=== PATIENT | male | born 1950 | race Two or more races ===

== ENCOUNTER 2018-03-27 20:23 | Inpatient (IN) | payer MEDICARE, OTHER ==
[~2018-03-27] VITALS: Ht 177.8 cm; Wt 69.4 kg
--- NOTE | 2018-03-27 20:23 | NUR ---
BB RA 889; ABD PAIN, NAUSEA, VOMIT X 1 DAY. A/OX2 ABLE TO MAKE NEEDS KNOWN BUT HARD OF HEARING. VSS NAD. WILL CONTINUE TO MONITOR FOR ANY CHANEGS DURING THE SHIFT.
--- NOTE | 2018-03-27 20:24 | NUR ---
ER MD DALY AT BEDSIDE FOR EVAL
[2018-03-27] MEDS ORDERED: ONDANSETRON HCL/PF 4 MG/2 ML VIAL ONE (20:59)
[2018-03-27] MEDS ORDERED: IV NS 0.9% 1,000 ML BAG IV ONE (21:00)
[2018-03-27] MEDS ORDERED: ONDANSETRON HCL/PF 4 MG/2 ML VIAL IVP ONE (21:00)
[2018-03-27 21:04] LABS: BASOPHILS # (AUTO) 0.1 /CMM (0.0-0.2); BASOPHILS % (AUTO) 0.7 % (0.0-2.0); EOSINOPHILS % (AUTO) 0.8 % (0.0-6.0); HEMATOCRIT 48 % (39-51); HEMOGLOBIN 16.9 g/dL (13.5-17.5); LYMPHOCYTES % (AUTO) 7.9 % (20.0-44.0); MEAN CORPUSCULAR HEMOGLOBIN 34 PG (26.0-33.0); MEAN CORPUSCULAR HGB CONC 35 g/dl (31.0-36.0); MEAN CORPUSCULAR VOLUME 96 fL (80-96); MONOCYTES # (AUTO) 0.6 /CMM (0.1-1.30); MONOCYTES % (AUTO) 4.9 % (2.0-12.0); NEUTROPHILS % (AUTO) 85.7 % (43.0-81.0); PLATELET COUNT (AUTO) 254 /CMM (150-450); RED BLOOD CELL COUNT(AUTO) 5.01 MIL/uL (4.5-6.0); WHITE BLOOD COUNT (AUTO) 12.8 K/uL (4.3-11.0)
[2018-03-27 21:08] LABS: CALCIUM, SERUM 9.5 mg/dL (8.5-10.1); CREATININE 1.4 mg/dL (0.6-1.3)
[2018-03-27 21:23] LABS: ALBUMIN 3.9 g/dL (3.4-5.0); BILIRUBIN,DIRECT 0.3 mg/dL (0.0-0.2); BILIRUBIN,TOTAL 1.2 mg/dL (0.2-1.0)
--- NOTE | 2018-03-27 21:25 | NUR ---
DR. ALANNA NAPOLES COMMERCIAL TELLER, TRANSFERRED CALL TO DR. DALY
[2018-03-27] MEDS ORDERED: PANTOPRAZOLE 80 MG in IV NS 0.9% 500 ML IV ONE (21:30)
[2018-03-27] MEDS ORDERED: PANTOPRAZOLE 40 MG VIAL ONE (21:34)
--- NOTE | 2018-03-27 22:08 | NUR ---
CALLED NURSING SUP. FOR TELE BED
--- NOTE | 2018-03-27 22:25 | NUR ---
TELE 118-1 FOR UPPER GI BLEED, HEMATEMESIS, ADMITTING
--- NOTE | 2018-03-27 23:00 | NUR ---
BARREL RAISER HELPER ADMITTING NOTES RECEIVED REPORT FROM SU GARCIA. PATIENT ADMITTED TO TELE UNIT TO ROOM 118-[address] MONDRAGON W/ DX UPPER GI BLEED. PATIENT A/A/O X1-2 W/ SOME CONFUSION NOTED. ABLE TO FOLLOW SIMPLE COMMANDS. BREATHING EVEN & UNLABORED, TOLERATING ROOM AIR. ON TELE W/ CONTROLLED A-FIB, HR 70S. DENIES ANY SOB OR CARDIAC DISTRESS. LEFT AC IV #18 INTACT & PATENT W/ DRESSING CDI & PROTONIX DRIP INFUSING WELL @ 52 ML/HR. NO S/S OF INFILTRATION NOTED. DENIES ANY PAIN OR DISCOMFORT @ THIS TIME BUT C/O NAUSEA. SKIN ASSESSMENT DONE W/ PICTURES TAKEN. PATIENT ORIENTED TO ROOM AND INSTRUCTED TO USE CALL LIGHT FOR ASSISTANCE. SAFETY MEASURES IN PLACE W/ BED ALARM ON. AWAITING ADMITTING ORDERS. WILL CONTINUE TO MONITOR.
[2018-03-27 23:01] VITALS: BP 147/87
[2018-03-28] VITALS: BP 147/87
[2018-03-28] MEDS ORDERED: ONDANSETRON HCL/PF 4 MG/2 ML VIAL IVP PRN (00:30)
[2018-03-28] MEDS ORDERED: ZOLPIDEM TARTRATE 5 MG TABLET PO PRN (00:30)
[2018-03-28] MEDS ORDERED: HYDROCODONE/APAP 5/325MG 1 EACH TABLET PO PRN (00:30)
[2018-03-28] MEDS ORDERED: MAGNESIUM HYDROXIDE 30 ML UDC PO PRN (00:30)
[2018-03-28] MEDS ORDERED: ACETAMINOPHEN 325 MG TABLET PO PRN (00:30)
[2018-03-28] MEDS ORDERED: Z GUARD REMEDY 2 OZ OINT TP PRN (00:30)
[2018-03-28] MEDS ORDERED: MAG HYDROX/AL HYDROX/SIMETH 30 ML UDC PO PRN (00:30)
[2018-03-28 04:00] VITALS: BP 156/72
--- NOTE | 2018-03-28 05:00 | NUR ---
PONY TRIMMER NOTES PATIENT NOTED W/ BEHAVIORAL OUTBURSTS OF AGGRESSIVENESS TOWARDS STAFF WHEN ASSISTING TO BATHROOM. PATIENT YELLING LOUDLY & CUSSING @ NURSES WHEN ATTEMPTED TO ASSIST.
--- NOTE | 2018-03-28 06:22 | NUR ---
SENIOR ACCOUNTANT NOTES PATIENT CONTINUES TO YELL & CUSS @ NURSES WHEN ATTEMPTING TO ASSIST TO BATHROOM. PATIENT IS REPEATEDLY GOING BACK AND FORTH TO BATHROOM EVEN WHEN HE IS NOT HAVING BM OR URINATING. EMESIS X2 NOTED & ZOFRAN GIVEN. SECURITY CALLED FOR ADDITIONAL SAFETY. PER PREVIOUS MEDICAL RECORDS, PT HAS HX OF SCHIZOPHRENIA BUT IS NOT TAKING ANY MEDS FOR IT. WILL ENDORSE TO AM NURSE TO TRY AND GET PSYCH EVAL FOR PT.
--- NOTE | 2018-03-28 07:30 | NUR ---
RN OPENING NOTES RECEIVED PATIENT ASLEEP COMFORTABLY IN BED, EASILY AROUSABLE DURING CARE. PATIENT REPORTED TO BE NON COMPLIANT WITH CARE. CORPORATE AUDITOR IN PLACE, CONTROLLED AFIB AT THIS TIME. RESPIRATIONS EVEN AND UNLABORED, RESPIRATIONS EVEN AND UNLABORED, NO N/V AT THIS TIME. DENIES ANY PAIN OR DISCOMFORT AT THIS TIME. IV ACCESS TO LAC PATENT AND INTACT NO REDNESS OR INFILTRATION NOTED. PT FOR ABD US TODAY, WILL CONTINUE TO MONITOR
[2018-03-28 08:00] VITALS: BP 106/70
--- NOTE | 2018-03-28 08:50 | NUR ---
RN NOTES/REFUSING ABD US US TECH IN ROOM FOR US OF ABDOMEN, PT YELLS OUT " LEAVE EVERYTHING IT IS, THAT IS HOW I WANT IT, I AM FINE, NOTHING IS WRONG IF IT WAS I WOULD TELL YOU" PT REFUSING TO HAVE ABD US DONE, WILL NOTIFY AND REATTEMPT
[2018-03-28] MEDS: PANTOPRAZOLE 40 MG VIAL IV SCH ×2 (08:51→16:20)
[2018-03-28 12:00] VITALS: BP 106/70
--- NOTE | 2018-03-28 15:40 | NUR ---
RN NOTES PROVIDER RELATIONS REPRESENTATIVE FAUSTO AWARE PT REFUSING ABD US, PT TO HAVE PSYCH AND GI CONSULTS, WILL CONTINUE TO MONITOR
--- NOTE | 2018-03-28 15:51 | NUR ---
RN NOTES/PSYCH CONSULT PT SEEN BY DR. KNIGHT, PT WITH EPISODES OF YELLING OUT, SCREAMING AT STAFF AND ANGER OUTBURST, PER DR. KNIGHT TO BE SEEN BY CRISIS TEAM, CRISIS TEAM AWARE WILL CONTINUE TO MONITOR
--- NOTE | 2018-03-28 15:52 | NUR ---
RN NOTES/ REFUSING LABS PT WITH REFUSAL OF LAB WORK CONTINUES TO YELL AT STAFF "LEAVE ALONE THEY DONT NEED BLOOD" WILL CONTINUE TO MONITOR SEWER LINE REPAIRER TO REATTEMPT
[2018-03-28 16:00] VITALS: BP 105/59
[2018-03-28] MEDS: IV NS 0.9% 1,000 ML IV PRN ×2 (16:21→18:45)
--- NOTE | 2018-03-28 16:38 | NUR ---
RN NOTES/PSYCH CONSULT PER DR. KNIGHT PLACED ON MEDICATIONS, CALL CRISIS TEAM IF PT TRYING TO HARM SELF OR TRYING TO LEAVE HOSPITAL, WILL CONTINUE TO MONITOR AND CARRY OUT ORDERS
[2018-03-28 16:56] LABS: CALCIUM, SERUM 8.4 mg/dL (8.5-10.1); CREATININE 1.2 mg/dL (0.6-1.3); POTASSIUM 4.5 mmol/L (3.5-5.1)
--- NOTE | 2018-03-28 17:42 | NUR ---
RN NOTES PATIENT CONTINUES WITH VERBAL ANGER OUTBURST, YELLS AT STAFF STATING "I WILL HURT SOMEONE IF THAT NOISE KEEPS GOING OFF" REFERRING TO AC VENT AND MEDICAL EQUIPMENT IN OTHER PT ROOMS
--- NOTE | 2018-03-28 17:44 | NUR ---
RN NOTES PT REFUSING NURSING CARE, REFUSES BED BATH AND TO BE REPOSITIONED WILL CONTINUE TO MONITOR
[2018-03-28] MEDS: HALOPERIDOL 5 MG TABLET PO SCH (17:54)
[2018-03-28] MEDS: BENZTROPINE MESYLATE (1 MG) 1 MG TABLET PO SCH (17:54)
--- NOTE | 2018-03-28 19:01 | NUR ---
RN CLOSING NOTES RECEIVED ASLEEP COMFORTABLY IN BED, EASILY AROUSABLE DURING CARE. PATIENT NON COMPLIANT WITH CARE. RESPIRATIONS EVEN AND UNLABORED, NO N/V AT THIS THROUGHOUT SHIFT. DENIES ANY PAIN OR DISCOMFORT AT THIS TIME. IV ACCESS TO LAC PATENT AND INTACT NO REDNESS OR INFILTRATION NOTED. PT REFUSED ABD US TODAY,CASE RESOURCE MANAGER AND GI MD AWARE WILL CONTINUE TO MONITOR AND ENDORSE TO NEXT SHIFT FOR CONTINUITY OF CARE, PENDING CRISIS TEAM EVAL
--- NOTE | 2018-03-28 19:45 | NUR ---
MS RN INITIAL NOTE PT AWAKE AND ALERT. ON ROOM AIR AND SATURATING WELL. NOTED TO BE UNCOOPERATIVE, NON-COMPLIANT AND COMBATIVE. REFUSING VITAL SIGNS AND BLOOD TESTS. EXPLAINED RISKS AND BENEFITS AND PATIENT STILL REFUSING. NO C/O PAIN OR DISCOMFORT NOTED. NO NAUSEA OR VOMITING NOTED. CALL LIGHT WITHIN REACH. BED ALARM ENABLED. AWAITING CRISIS TEAM EVAL. WILL CONTINUE TO MONITOR.
--- NOTE | 2018-03-28 23:30 | NUR ---
MS RN NOTE SPOKE WITH ART FROM CRISIS TEAM REGARDING PT EVAL. ART SAID NO EVALUATION AT THIS TIME BECAUSE HE IS NOT MEDICALLY CLEARED. WILL F/U TOMORROW WITH PRIMARY AND PSYCH. PT STILL REFUSING CARE AND WANTS TO BE LEFT ALONE. WILL MONITOR.
[2018-03-29] MEDS: IV NS 0.9% 1,000 ML IV PRN (07:21)
[2018-03-29 07:28] LABS: BASOPHILS % (AUTO) 0.2 % (0.0-2.0); EOSINOPHILS % (AUTO) 0.8 % (0.0-6.0); HEMATOCRIT 42 % (39-51); HEMOGLOBIN 14.1 g/dL (13.5-17.5); LYMPHOCYTES # (AUTO) 1.4 /CMM (0.8-4.8); LYMPHOCYTES % (AUTO) 16.1 % (20.0-44.0); MEAN CORPUSCULAR HEMOGLOBIN 34 PG (26.0-33.0); MEAN CORPUSCULAR HGB CONC 34 g/dl (31.0-36.0); MEAN CORPUSCULAR VOLUME 100 fL (80-96); MONOCYTES # (AUTO) 0.6 /CMM (0.1-1.30); MONOCYTES % (AUTO) 6.5 % (2.0-12.0); NEUTROPHILS # (AUTO) 6.9 /CMM (1.8-8.9); NEUTROPHILS % (AUTO) 76.4 % (43.0-81.0); PLATELET COUNT (AUTO) 224 /CMM (150-450); RDW COEFFICIENT OF VARIATION 12.7 (11.5-15.0); RED BLOOD CELL COUNT(AUTO) 4.18 MIL/uL (4.5-6.0)
--- NOTE | 2018-03-29 07:30 | NUR ---
M/S RN - Assessment Patient in bed awake, A/O x 1-2, denies pain, not in any form of distress, tolerating room air, combative, verbally abusive, refusing blood draw today. Patient was admitted for UGIB, refused endoscopy, no active bleeding noted at this time, currently on clear liquids, no n/v, no c/o abdominal pain. IVF NS @ 75 ml/hr infusing well on the LAC with no signs of infiltration. Skin assessment done and documented, independent with bed mobility. All needs attended and met. Fall precautions maintained. Will continue with current medical management.
[2018-03-29 07:46] LABS: ALBUMIN 2.8 g/dL (3.4-5.0); BILIRUBIN,TOTAL 1.1 mg/dL (0.2-1.0); CALCIUM, SERUM 8.3 mg/dL (8.5-10.1); CREATININE 1.1 mg/dL (0.6-1.3); MAGNESIUM 1.9 mg/dL (1.8-2.4); PHOSPHORUS 2.1 mg/dL (2.5-4.9)
[2018-03-29] MEDS: BENZTROPINE MESYLATE (1 MG) 1 MG TABLET PO SCH ×3 (08:26→16:33)
[2018-03-29] MEDS: HALOPERIDOL 5 MG TABLET PO SCH ×3 (08:26→16:33)
[2018-03-29 08:30] VITALS: BP 122/66
[2018-03-29] MEDS ORDERED: PANTOPRAZOLE 40 MG VIAL IV SCH (09:00)
--- NOTE | 2018-03-29 09:00 | NUR ---
M/S RN - Notes Patient calm, agreed to blood draw earlier, compliant with meds, tolerated clear liquids for breakfast. Labs reviewed, noted phosphorus was 2.1, will notify ANDRA Metz. Will continue to monitor closely.
[2018-03-29] MEDS ORDERED: PANT40TA2 PO (10:38)
[2018-03-29] MEDS ORDERED: HALO5TAB8 PO (10:39)
[2018-03-29] MEDS ORDERED: BENZ1TAB7 PO (10:39)
--- NOTE | 2018-03-29 13:00 | NUR ---
M/S RN - Notes Patient tolerated regular diet well, denies n/v, no c/o abdominal pain. Per ANDRA Metz medically stable for discharge back to board and care today. CM made aware.
[2018-03-29] MEDS ORDERED: K PHOS NEUTRAL 250 MG TABLET PO ONE (13:30)
[2018-03-29 16:00] VITALS: BP 128/71
--- NOTE | 2018-03-29 18:15 | NUR ---
M/S RN - Discharge Patient discharged back to [facility] care ([facility]) in stable condition, Edy district court administrator aware [phone]. Reviewed discharge instructions with Edy and he verbalized full understanding of all teachings, also made aware that patient has an appt with [facility] on 03/31/18 at 12:00 pm, seek immediate medical attention for worsening symptoms, chest pain, shortness or breath, any bleeding, weakness, fatigue, dizziness, or any other emergent medical concern. Patient with no belongings on file. VSS, denies abdominal pain, no c/o n/v, no active bleeding, tolerating regular diet, not in any form of distress. Saline lock removed on the LAC with catheter tip intact, no redness, no swelling seen at the site. Patient refused photos to be taken, no open wounds seen. Discharge papers given to ambulance crew and endorsed accordingly.
== END 2018-03-29 18:29 | disposition home or self-care (01) | DRG 368 ==
LOC: ER 20:25 → TELE1 22:44 → MEDSG1 03-28 14:50
PROVIDERS: ADMIT Internal Medicine; ATTEND Internal Medicine
DX: K22.6 Gastro-esophageal laceration-hemorrhage syndrome (principal); N17.0 Acute kidney failure with tubular necrosis; F20.0 Paranoid schizophrenia; K29.71 Gastritis, unspecified, with bleeding; I10 Essential (primary) hypertension; D72.829 Elevated white blood cell count, unspecified; E80.6 Other disorders of bilirubin metabolism; Z59.0 Homelessness; F10.10 Alcohol abuse, uncomplicated; F41.9 Anxiety disorder, unspecified; F17.210 Nicotine dependence, cigarettes, uncomplicated
CPT/HCPCS: 36415; 76705-TC; 80048-TC; 80053-TC; 80061-TC; 80076-TC; 83690-TC; 83735-TC; 84100-TC; 84484-TC; 85025-TC; 86850-TC; 87081-TC; A4606; C9113; J2405; J7030; Z7610

== ENCOUNTER 2018-12-10 00:03 | Emergency (ER) | payer MEDICARE, OTHER ==
[~2018-12-10] VITALS: Ht 180.3 cm; Wt 70.3 kg
[~2018-12-10 00:03] MED LIST: BENZ1TAB7 PO; HALO5TAB8 PO; PANT40TA2 PO
--- NOTE | 2018-12-10 00:29 | NUR ---
[id number] FROM [facility] C/O R KNEE REDNESS/SWELLING X 1 DAY. AOX2 BASELINE. KNEE IS WARM TO TOUCH, INTACT. PT ABLE TO ANSWER QUESTIONS. DENIES PAIN, NO ACUTE DISTRESS NOTED. READY FOR EVAL.
--- NOTE | 2018-12-10 00:44 | NUR ---
SEEN BY DR CORBIN
[2018-12-10] MEDS ORDERED: CLINDAMYCIN HCL 150 MG CAPSULE PO ONE ×2 (00:48→01:00)
--- NOTE | 2018-12-10 02:27 | NUR ---
Patient is resting comfortably in bed with eyes closed. Easily aroused. VSS
--- NOTE | 2018-12-10 02:42 | NUR ---
LYNDA TAYLOR GOING TO [facility] ETA [id number] TRIP #[id number]
--- NOTE | 2018-12-10 03:18 | NUR ---
DC INSTRUCTIONS GIVEN TO EMT FOR RELAY TO FACILITY.
--- NOTE | 2018-12-10 03:25 | NUR ---
REPORT GIVEN TO DAFNE NOYOLA AND KAMARI AT [facility]
[2018-12-10 03:31] VITALS: BP 117/76
[2018-12-16] MEDS ORDERED: Digoxin PO (11:50)
[2018-12-16] MEDS ORDERED: MUPI22OI7 (11:51)
[2018-12-16] MEDS ORDERED: LACT1CAP72 PO (11:51)
[2018-12-16] MEDS ORDERED: NITR100C15 PO (11:51)
[2018-12-16] MEDS ORDERED: DILT30TA14 PO (11:51)
[2018-12-16] MEDS ORDERED: VANC750P7 IV (11:51)
== END 2018-12-10 03:32 ==
LOC: ER 00:08
DX: L03.115 Cellulitis of right lower limb (principal); G20 Parkinson's disease; N40.0 Benign prostatic hyperplasia without lower urinary tract symptoms; F20.9 Schizophrenia, unspecified; I48.91 Unspecified atrial fibrillation; I10 Essential (primary) hypertension; R53.1 Weakness; F10.10 Alcohol abuse, uncomplicated; F17.200 Nicotine dependence, unspecified, uncomplicated; Y90.9 Presence of alcohol in blood, level not specified
CPT/HCPCS: 73560-TC

== ENCOUNTER 2018-12-11 22:39 | Inpatient (IN) | payer MEDICARE, OTHER ==
[~2018-12-11] VITALS: Ht 172.7 cm; Wt 54.4 kg
[2018-12-11] MEDS: DILTIAZEM HCL 50 MG IV IV ONE (00:05)
[2018-12-11] MEDS: LEVOFLOXACIN 750 MG /D5W 150ML 150 ML IV ONE (00:05)
--- NOTE | 2018-12-11 23:05 | NUR ---
PT MARYANA FROM [facility] FOR UTI/SEPSIS. PT RESPIRATIONS EVEN AND UNLABORED. PT PUT ON THE TURKEY FARMER AND PULSE OX. PT TACHYCARDIC ON THE MONITOR IN THE 140S, WARM TO THE TOUCH, RECTAL TEMP. 102.2. PENDING EVAL FROM DIANA FRAUSTO.
[2018-12-11] MEDS ORDERED: ACETAMINOPHEN 650 MG/SUPP.RECT RC ONE ×2 (23:30→23:38)
[2018-12-11] MEDS ORDERED: VANCOMYCIN 1 GM in IV D5W 250 ML IV ONE (23:30)
[2018-12-11] MEDS ORDERED: IV NS 0.9% 1,000 ML BAG IV ONE (23:30)
[2018-12-11] MEDS ORDERED: Calcium Gluconate 0.465 MEQ/ML VIAL IV ONE (23:35)
[2018-12-11] MEDS ORDERED: DILTIAZEM HCL 25 MG IV ONE (23:37)
[2018-12-11] MEDS ORDERED: LEVOFLOXACIN 750 MG /D5W 150ML 150 ML IV ONE (23:38)
[2018-12-11 23:47] LABS: BASOPHILS % (AUTO) 0.4 % (0.0-2.0); EOSINOPHILS % (AUTO) 0.6 % (0.0-6.0); HEMATOCRIT 39 % (39-51); HEMOGLOBIN 13.1 g/dL (13.5-17.5); LYMPHOCYTES # (AUTO) 0.8 /CMM (0.8-4.8); LYMPHOCYTES % (AUTO) 6.6 % (20.0-44.0); MEAN CORPUSCULAR HGB CONC 34 g/dl (31.0-36.0); MEAN CORPUSCULAR VOLUME 97 fL (80-96); MONOCYTES # (AUTO) 1.2 /CMM (0.1-1.30); MONOCYTES % (AUTO) 10.6 % (2.0-12.0); NEUTROPHILS # (AUTO) 9.6 /CMM (1.8-8.9); NEUTROPHILS % (AUTO) 81.8 % (43.0-81.0); PLATELET COUNT (AUTO) 298 /CMM (150-450); RED BLOOD CELL COUNT(AUTO) 4.03 MIL/uL (4.5-6.0); WHITE BLOOD COUNT (AUTO) 11.7 K/uL (4.3-11.0)
[2018-12-11 23:57] LABS: APPEARANCE,URINE Slightly Cloudy (CLEAR); BILIRUBIN,URINE Negative (NEGATIVE); BLOOD, URINE Moderate Ery/uL (NEGATIVE); COLOR,URINE Yellow (YELLOW); KETONES,URINE Negative (NEGATIVE); LEUKOCYTE ESTERASE ,URINE Small (NEGATIVE); NITRITE, URINE Negative (NEGATIVE); PH,URINE 5.5 (5.0-8.0); PROTEIN,URINE 100 mg/dl (NEGATIVE); UGLUCOSE Negative (NEGATIVE); UROBILINOGEN,URINE 0.2 EU/dL (0.2)
[2018-12-11 23:59] LABS: CALCIUM, SERUM 8.3 mg/dL (8.5-10.1); CREATININE 0.9 mg/dL (0.6-1.3); POTASSIUM 3.6 mmol/L (3.5-5.1)
[2018-12-12] MEDS ORDERED: Calcium Gluconate 1GM/10ML 4.65 MEQ in IV NS 0.9% 50 ML IV ONE ×2
[2018-12-12] MEDS: LEVOFLOXACIN 750 MG /D5W 150ML 150 ML IV ONE (00:05)
[2018-12-12] MEDS: DILTIAZEM HCL 50 MG IV IV ONE (00:05)
--- NOTE | 2018-12-12 00:10 | NUR ---
XRAY AT BEDSIDE.
[2018-12-12 00:11] LABS: ALBUMIN 2.2 g/dL (3.4-5.0); BILIRUBIN,DIRECT 0.2 mg/dL (0.0-0.2); BILIRUBIN,TOTAL 0.6 mg/dL (0.2-1.0); TOTAL PROTEIN, SERUM 6.2 g/dL (6.4-8.2)
[2018-12-12 00:30] LABS: RBC,URINE 51-80 /HPF (0-2); WBC,URINE TOO NUMEROUS TO COUN /HPF (0-3)
[2018-12-12 00:31] LABS: BACTERIA,URINE Many /HPF (None Seen); MUCUS,URINE Moderate /LPF (None Seen)
--- NOTE | 2018-12-12 00:42 | NUR ---
HINA PAGED FOR THE SECOND TIME
[2018-12-12] MEDS ORDERED: VANCOMYCIN 1 GM VIAL ONE (00:49)
--- NOTE | 2018-12-12 00:55 | NUR ---
PT TACHYCARDIC ON THE MONITOR IN THE 130S, ER AWARE. WILL CARRY OUT ORDERS.
--- NOTE | 2018-12-12 01:01 | NUR ---
REPORT GIVEN TO ALLY GARCIA FOR HELENA.
[2018-12-12] MEDS ORDERED: DILTIAZEM HCL 25 MG IV ONE (01:06)
[2018-12-12] MEDS ORDERED: DILTIAZEM HCL 50 MG IV IV ONE ×2 (01:30→02:00)
--- NOTE | 2018-12-12 01:55 | NUR ---
PT TACHYCARDIC ON THE MONITOR, ER AWARE. WILL CARRY OUT ORDERS.
[2018-12-12 02:17] VITALS: BP 106/67
--- NOTE | 2018-12-12 02:17 | NUR ---
RN YURIY NOTE RECEIVED PT FROM ER, SPEECH CLEAR, AOX1-2, ABLE TO FOLLOW COMMANDS, DENIES PAIN, ON TELE AFIB, ON ROOM AIR DENIES ANY CARDIAC OR RESPIRATORY DISTRESS, F/C DRAINING TO GRAVITY YELLOW URINE WITH SEDIMENT, SKIN KEPT CLEAN AND DRY, HEELS OFFLOADED, INSTRUCTED WRAPAROUND FACILITATOR LIGHT USE, SAFETY MAINTAINED AT ALL TIMES, BED IN LOW, LOCKED POSITION POSITION, WILL CONTINUE TO MONITOR FOR ANY CHANGES.
[2018-12-12] MEDS ORDERED: ACETAMINOPHEN 325 MG TABLET PO PRN (02:30)
[2018-12-12] MEDS ORDERED: MAGNESIUM HYDROXIDE 30 ML UDC PO PRN (02:30)
[2018-12-12] MEDS ORDERED: HYDROCODONE/APAP 5/325MG 1 EACH TABLET PO PRN (02:30)
[2018-12-12] MEDS ORDERED: MAG HYDROX/AL HYDROX/SIMETH 30 ML UDC PO PRN (02:30)
[2018-12-12] MEDS ORDERED: Z GUARD REMEDY 2 OZ OINT TP PRN (02:30)
[2018-12-12] MEDS ORDERED: METOPROLOL TARTRATE INJ 5 MG/5 ML AMPUL IVP PRN (02:30)
[2018-12-12] MEDS ORDERED: ONDANSETRON HCL/PF 4 MG/2 ML VIAL IVP PRN (02:30)
--- NOTE | 2018-12-12 02:49 | NUR ---
RN YURIY NOTE PATIENT HAS ORDER FOR ZOSYN, HAS ALLERGY TO PENICILLIN, MESSAGE TO DR SANTAMARIA CONCERNING ORDER STATES TO D/C
[2018-12-12] MEDS ORDERED: LEVOFLOXACIN 750 MG /D5W 150ML 150 ML IV ONE (03:42)
[2018-12-12] MEDS: LEVOFLOXACIN 750 MG /D5W 150ML 750 MG in PREMIX 1 EA IV SCH ×2 (03:45→21:16)
[2018-12-12 04:00] VITALS: BP 99/61
[2018-12-12] MEDS ORDERED: VANCOMYCIN 1.25 GM in IV D5W 500 ML IV SCH (05:00)
--- NOTE | 2018-12-12 05:53 | NUR ---
RN YURIY NOTE MESSAGE TO DR SANTAMARIA CONCERNING NPO ORDER AND PT ON PO CARDIZEM, AWAITING MD RESPONSE IF MEDICATION SHOULD BE GIVEN.
[2018-12-12] MEDS: DILTIAZEM HCL 30 MG TABLET PO SCH ×4 (06:00→23:56)
[2018-12-12] MEDS ORDERED: PIPERACILLIN /TAZOBACTAM 4.5 G in IV D5W 50 ML IV SCH (06:00)
--- NOTE | 2018-12-12 06:36 | NUR ---
RN YURIY NOTE CALL TO EXCHANGE FOR DR SANTAMARIA FOR ORDERS ON NPO STATUS AND NEED FOR PO MED ADMINISTRATION, AWAITING CALL BACK.
[2018-12-12 07:01] LABS: CALCIUM, SERUM 8.3 mg/dL (8.5-10.1); CREATININE 0.9 mg/dL (0.6-1.3); MAGNESIUM 1.3 mg/dL (1.8-2.4); POTASSIUM 3.8 mmol/L (3.5-5.1)
--- NOTE | 2018-12-12 07:11 | NUR ---
RN YURIY NOTE NO CALL BACK FROM ONCANEL FRAUSTO WILL ENDORSE TO RN CONCERNING NPO ORDER AND NEED FOR PO MED ADMINISTRATION, CARDIZEM HELD DUE TO NPO STATUS, PT CONTINUES TO BE ON TELE AFIB, NO S/SX OF CARDIAC DISTRESS NOTED.
[2018-12-12] MEDS ORDERED: ALBUTEROL FS 2.5 MG/3 ML VIAL.NEB NEB PRN (07:35)
--- NOTE | 2018-12-12 07:40 | NUR ---
RN NOTE: RECEIVED PATIENT IN BED, AWAKE, ALOOF AND VERBALLY RESPONSIVE. RESPIRATION EVEN AND UNLABORED SATURATING 98% IN ROOM AIR. DENIED ANY PAIN OR DISCOMFORT. ON SAMPLE MOUNTER A. FIB HR= 103. (R) FOREARM AND (L) WRIST IV SITE REMAINED PATENT AND INTACT. AFEBRILE. SKIN WARM TO TOUCH. NPO STATUS AT THIS TIME AND WILL CLARIFY WITH THE HOSPITALIST REGARDING DIET STATUS. BED ALARMED AND LOCKED AT ALL TIMES. CALL LIGHT WITHIN REACH. NEEDS ANTICIPATED. ON CONTACT ISOLATION FOR MRSA BLOOD AND URINE FROM THE LONG TERM ([employer] [facility]).
[2018-12-12 08:00] VITALS: BP 101/65
[2018-12-12] MEDS ORDERED: FEE PK DOSING 1 MIN EA MC ONE (08:10)
[2018-12-12 08:29] LABS: THYROID STIMULATING HORMONE 0.79 uIU/mL (0.358-3.74)
--- NOTE | 2018-12-12 09:36 | NUR ---
RN NOTE: CLARIFIED WITH JOE LEONARD DNP RE: THE PATIENT'S NPO STATUS. PATIENT WAS RECEIVED WITH UNCONTROLLED A. FIB HEART RATE NOW WAS 110. PER JOE LEONARD DNP PATIENT CAN BE NPO EXCEPT MEDS IN ORDER TO ADMINISTER HIS MEDICATIONS AND A CARDIOLOGY CONSULT WAS ALSO ORDERED. PATIENT MADE AWARE.
[2018-12-12] MEDS: BENZTROPINE MESYLATE (1 MG) 1 MG TABLET PO SCH ×3 (09:55→16:56)
[2018-12-12] MEDS: HALOPERIDOL 5 MG TABLET PO SCH ×3 (09:55→16:56)
[2018-12-12] MEDS: PANTOPRAZOLE 40 MG TABLET.DR PO SCH ×2 (09:56→16:56)
[2018-12-12] MEDS: Magnesium 1GM/D5W 100ML PREMIX 100 ML IV SCH ×4 (09:56→14:11)
[2018-12-12] MEDS ORDERED: Magnesium 1GM/D5W 100ML PREMIX 100 ML IV SCH ×2 (10:00→10:41)
--- NOTE | 2018-12-12 10:35 | NUR ---
WOUND CARE CONSULT: PT PRESENTS WITH SACRAL ULCER EXTENDING TO BUTTOCKS AND ALSO FOOT WOUNDS, PRESENT ON ADMISSION. CONSULTS IN PLACE FOR SURGICAL AND PODIATRY TEAM. PT INCONTINENT OF STOOL. YESENIA NOTED. RECOMMEND LOW AIRLOSS BED. WILL SEE PRN. ALL SKIN PROTECTION RECOMMENDATIONS DISCUSSED WITH NURSING STAFF. DEFER TO PLASTIC SURGERY/PODIATRY TEAM FOR WOUND TREATMENT PLAN. WILL SEE PRN. Addendum: 12/12/18 at 1039 by NURYS GABRIEL WNDNU ISOFLEX LOW AIRLOSS BED TO BE PLACED.
[2018-12-12] MEDS: DIGOXIN INJ 0.5 MG/2 ML AMPUL IV SCH ×3 (11:54→23:51)
[2018-12-12 12:00] VITALS: BP 110/70
--- NOTE | 2018-12-12 12:30 | NUR ---
RN NOTE: SPOKE WITH THE PATIENT AND MADE HIM AWARE THAT HE WILL BE TRANSFERRED TO A DIFFERENT TYPE OF MATTRESS. PATIENT STRONGLY REFUSED TO BE TOUCH. OFFERED 3X, EXPLAINED THE IMPORTANCE OF THE ISOFLEX MATTRESS, BUT PATIENT STRONGLY REFUSED TO BE TRANSFER.
[2018-12-12] MEDS: VANCOMYCIN 0.75 GM in IV D5W 250 ML IV SCH (14:12)
[2018-12-12 16:00] VITALS: BP 120/82
--- NOTE | 2018-12-12 19:06 | NUR ---
RN NOTE: PATIENT REMAINED ON A. FIB 110-116 HEART RATE. PATIENT DENIED ANY PAIN OR DISCOMFORT. NOT EXPERIENCING ANY CHEST PAIN. DIGOXIN WAS ADMINISTERED ORDER. BEDSIDE REPORT GIVEN TO PM SHIFT NURSE FOR CONTINUITY OF CARE.
--- NOTE | 2018-12-12 19:30 | NUR ---
RN NOTE, RECEIVED PATIENT IN BED, AWAKE, A/O TO SELF, AND VERBALLY RESPONSIVE, BREATHING EVEN AND UNLABORED NO SOB/ACUTE DISTRESS NOTED, FIB HR= 120S AT THIS TIME, RFA AND LEFT WRIST IV SITE PATENT AND INTACT, NPO STATUS AT THIS TIME, BED ALARMED AND LOCKED AT ALL TIMES, CALL LIGHT WITHIN REACH, ON CONTACT ISOLATION FOR MRSA BLOOD AND URINE, ALL NEEDS PROVIDED, WILL CONTINUE TO MONITOR CLOSELY.
[2018-12-12 20:00] VITALS: BP 103/64
[2018-12-13] VITALS: BP 125/68
[2018-12-13] MEDS: VANCOMYCIN 0.75 GM in IV D5W 250 ML IV SCH ×2 (00:55→13:09)
[2018-12-13 04:00] VITALS: BP 94/55
[2018-12-13] MEDS: DILTIAZEM HCL 30 MG TABLET PO SCH ×3 (06:44→17:31)
--- NOTE | 2018-12-13 07:00 | NUR ---
RN NOT, PATIENT IN BED SLEEPING AT THIS TIME, REMAINED ON AFIB 80-100S HEART RATE AT THIS TIME, NO DISTRESS NOTED, LAST DOSE OF DIGOXIN WAS ADMINISTERED ORDER AT MIDNIGHT, NO SIGNIFICANT CHANGE IN CONDITION DURING THE NIGHT, WILL ENDORSE CONTINUITY OF CARE TO ONCOMING NURSE.
[2018-12-13 07:06] LABS: BASOPHILS # (AUTO) 0.1 /CMM (0.0-0.2); BASOPHILS % (AUTO) 0.6 % (0.0-2.0); EOSINOPHILS % (AUTO) 0.6 % (0.0-6.0); HEMATOCRIT 40 % (39-51); HEMOGLOBIN 13.3 g/dL (13.5-17.5); LYMPHOCYTES % (AUTO) 11.6 % (20.0-44.0); MEAN CORPUSCULAR HGB CONC 34 g/dl (31.0-36.0); MEAN CORPUSCULAR VOLUME 96 fL (80-96); MONOCYTES # (AUTO) 0.8 /CMM (0.1-1.30); MONOCYTES % (AUTO) 9.7 % (2.0-12.0); NEUTROPHILS # (AUTO) 6.6 /CMM (1.8-8.9); NEUTROPHILS % (AUTO) 77.5 % (43.0-81.0); PLATELET COUNT (AUTO) 298 /CMM (150-450); WHITE BLOOD COUNT (AUTO) 8.5 K/uL (4.3-11.0)
[2018-12-13 07:14] LABS: CALCIUM, SERUM 8.3 mg/dL (8.5-10.1); CREATININE 1.1 mg/dL (0.6-1.3); MAGNESIUM 1.8 mg/dL (1.8-2.4); PHOSPHORUS 3.4 mg/dL (2.5-4.9); POTASSIUM 3.7 mmol/L (3.5-5.1)
--- NOTE | 2018-12-13 07:30 | NUR ---
LAMP ASSEMBLER OPENING NOTE RECEIVED PATIENT IN BED, AWAKE, AX0X1 TO , AND VERBALLY RESPONSIVE, BREATHING EVEN AND UNLABORED NO SOB/ACUTE DISTRESS NOTED, AFIB HR 70"S AT THIS TIME, RFA AND LEFT WRIST IV SITE PATENT AND INTACT, NPO., BED ALARM ON.BED IS LOW AND IN LOCKED POSITION. CALL LIGHT WITHIN REACH.SRX3. ON CONTACT ISOLATION FOR MRSA BLOOD AND URINE. WILL CONTINUE TO MONITOR .
[2018-12-13 08:00] VITALS: BP_SYST 93; BP_SYST 97; BP_DIAS 55
--- NOTE | 2018-12-13 08:25 | NUR ---
MANAGER BALANCE NOTE NPO STATUS. NOTIFIED.WAITING FOR NEW ORDERS.
[2018-12-13] MEDS: BENZTROPINE MESYLATE (1 MG) 1 MG TABLET PO SCH ×3 (09:37→17:31)
[2018-12-13] MEDS: HALOPERIDOL 5 MG TABLET PO SCH ×3 (09:37→17:31)
[2018-12-13] MEDS: PANTOPRAZOLE 40 MG TABLET.DR PO SCH ×2 (09:37→17:31)
--- NOTE | 2018-12-13 10:30 | NUR ---
MS RN NOTE OK TO START ON PO DIET PER .PUREE DIET ORDERED.BED SIDE SWALLOW DONE.PATIENT PASSED SWALLOW EVAL.NOTED THAT PATIENT TAKES TIME TO SWALLOW.ORDERED SWALLOW EVAL BY SPEECH THERAPIST.SWALLOW EVAL DONE BY DRU.GOT NEW ORDER TO CONTINUE SAME DIET WITH ASPIRATION PRECAUTIONS.WILL CONTINUE TO MONITOR.
--- NOTE | 2018-12-13 11:08 | NUR ---
MS RN NOTE SEEN BY ANDRA DIAZ.UPDATED ABOUT PATIENT CONDITION AND LABS.MADE AWARE THAT F/C REMOVED FOR REPLACEMENT PER JER FRAUSTO.BUT UNABLE TO REINSERT.
[2018-12-13] MEDS: DIGOXIN 0.25 MG TABLET PO SCH (13:06)
[2018-12-13 16:00] VITALS: BP 102/60
--- NOTE | 2018-12-13 18:44 | NUR ---
MS RN CLOSING NOTE PATIENT IN BED, AWAKE, AX0X1 TO , AND VERBALLY RESPONSIVE, BREATHING EVEN AND UNLABORED NO SOB/ACUTE DISTRESS NOTED, RFA AND LEFT WRIST IV SITE PATENT AND INTACT, . BED ALARM ON.BED IS LOW AND IN LOCKED POSITION. CALL LIGHT WITHIN REACH.SRX3. ON CONTACT ISOLATION FOR MRSA NARES,BLOOD AND URINE. BLADDERSCAN DONE.SHOWS >200 ML.PATIENT WAS UNABLE TO PASS URINE.REINSERTED PATTERSON CATH 14X10.PATIENT REFUSED TO TURN AND REPOSITION EVERY 2 HRS.AGREED SOME TIMES.HAS BEHAVIOR OF HITTING AND VERBALLY ABUSIVE.PLACED NEW MED ORDER FOR MRSA NARES.NOTIFIED BY JESÚS FROM [employer].WILL ENDORSE TO PM NURSE FOR HELENA AND TO FOLLOW UP WITH DIETARY RECOMMENDATIONS.
--- NOTE | 2018-12-13 19:30 | NUR ---
MS RN NOTES RECEIVED ON BED ON SEMI FOWLERS POSITION,BREATHING NON LABORED,ISOLATION PRECAUTION FOR MRSA NARES,BLOOD AND URINE.WITH PATTERSON CATH IN PLACE DRAINING TEA COLORED URINE.NOTED REDNESS ON BILATERAL HEELS,MEPILEX IN PLACE.SALINE LOC LEFT WRIST INTACT AND PATENT.CALL LIGHT IN REACH,NEEDS ANTICIPATED.
[2018-12-13 20:01] VITALS: BP 91/45
[2018-12-13] MEDS: LEVOFLOXACIN 750 MG /D5W 150ML 750 MG in PREMIX 1 EA IV SCH (21:08)
[2018-12-13] MEDS: MUPIROCIN OINT 2% 22 GM TUBE SCH (21:11)
[2018-12-14] VITALS: BP 103/49
[2018-12-14] MEDS: VANCOMYCIN 0.75 GM in IV D5W 250 ML IV SCH ×2 (00:25→13:17)
[2018-12-14 04:05] VITALS: BP 92/54
[2018-12-14] MEDS: DILTIAZEM HCL 30 MG TABLET PO SCH ×4 (06:00→18:06)
--- NOTE | 2018-12-14 06:13 | NUR ---
MS RN NOTES NO SIGNIFICANT CHANGE IN STATUS,CALM AND QUIET AT NIGHT.IV ABV TOLERATED WELL,IN NO ACUTE DISTRESS.WILL CONTINUE TO MONITOR STATUS AND MANAGE ACCORDINGLY.MORNING CARE RENDERED TOLERATED WELL.WILL ENDORSE TO DAY NURSE FOR HELENA.
--- NOTE | 2018-12-14 07:05 | NUR ---
MS RN OPENING NOTE RECEIVED REPORT FROM PM NURSE.PATIENT IN BED, AWAKE, AX0X1 AND VERBALLY RESPONSIVE, BREATHING EVEN AND UNLABORED NO SOB/ACUTE DISTRESS NOTED, RFA AND LEFT WRIST IV SITE PATENT AND INTACT, . BED ALARM ON.BED IS LOW AND IN LOCKED POSITION. CALL LIGHT WITHIN REACH.SRX3. ON CONTACT ISOLATION FOR MRSA NARES,BLOOD AND URINE. WILL CONTINUE TO MONITOR.
[2018-12-14 07:29] LABS: BASOPHILS # (AUTO) 0.1 /CMM (0.0-0.2); BASOPHILS % (AUTO) 0.6 % (0.0-2.0); EOSINOPHILS % (AUTO) 1.1 % (0.0-6.0); HEMATOCRIT 38 % (39-51); HEMOGLOBIN 12.9 g/dL (13.5-17.5); LYMPHOCYTES # (AUTO) 1.3 /CMM (0.8-4.8); LYMPHOCYTES % (AUTO) 13.9 % (20.0-44.0); MEAN CORPUSCULAR HGB CONC 34 g/dl (31.0-36.0); MEAN CORPUSCULAR VOLUME 94 fL (80-96); MONOCYTES # (AUTO) 0.9 /CMM (0.1-1.30); MONOCYTES % (AUTO) 10.3 % (2.0-12.0); NEUTROPHILS # (AUTO) 6.8 /CMM (1.8-8.9); NEUTROPHILS % (AUTO) 74.1 % (43.0-81.0); PLATELET COUNT (AUTO) 355 /CMM (150-450); RED BLOOD CELL COUNT(AUTO) 4.04 MIL/uL (4.5-6.0); WHITE BLOOD COUNT (AUTO) 9.2 K/uL (4.3-11.0)
[2018-12-14 07:36] LABS: CALCIUM, SERUM 8.8 mg/dL (8.5-10.1); CREATININE 0.9 mg/dL (0.6-1.3); MAGNESIUM 1.6 mg/dL (1.8-2.4); PHOSPHORUS 2.5 mg/dL (2.5-4.9); POTASSIUM 3.2 mmol/L (3.5-5.1)
[2018-12-14 08:00] VITALS: BP 130/80
[2018-12-14] MEDS: MUPIROCIN OINT 2% 22 GM TUBE SCH ×2 (08:45→21:00)
[2018-12-14] MEDS: PANTOPRAZOLE 40 MG TABLET.DR PO SCH ×2 (08:45→16:45)
[2018-12-14] MEDS: BENZTROPINE MESYLATE (1 MG) 1 MG TABLET PO SCH ×3 (08:45→16:44)
[2018-12-14] MEDS: HALOPERIDOL 5 MG TABLET PO SCH ×3 (08:45→16:44)
[2018-12-14] MEDS ORDERED: POTASSIUM CHLORIDE 20 MEQ TAB.PRT.SR PO SCH (10:00)
[2018-12-14] MEDS: Magnesium 1GM/D5W 100ML PREMIX 100 ML IV SCH ×2 (10:37→11:49)
[2018-12-14] MEDS: POTASSIUM CHLORIDE 20 MEQ POWDER PACKET GT SCH ×2 (11:49→13:17)
--- NOTE | 2018-12-14 13:00 | NUR ---
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
[2018-12-14] MEDS: DIGOXIN 0.25 MG TABLET PO SCH (13:11)
[2018-12-14 16:00] VITALS: BP 135/85
[2018-12-14] MEDS: LACTOBACILLUS RHAMNOSUS GG 1 EACH CAP.SPRINK PO SCH (16:45)
--- NOTE | 2018-12-14 17:35 | NUR ---
MS RN NOTE MADE AWARE ABOUT POSITIVE VRE URINE RESULT, VANCOMYCIN IS RESISTANT AND SENSITIVE TO NITROFURANTOIN AND LINEZOLID.LEFT MESSAGE .WAITING FOR RESPONSE.
--- NOTE | 2018-12-14 19:43 | NUR ---
MS RN CLOSING NOTE PATIENT IN STABLE CONDITION.ENDORSED PATIENT TO PM NURSE FOR HELENA.REQUESTED TO F/U WITH FOR ANTIBIOTIC FOR VRE URINE.WAITING FOR RESPONSE.
--- NOTE | 2018-12-14 19:45 | NUR ---
RN OPENING NOTES RECEIVED REPORT FROM DAYSHIFT RN. FOUND Pt RESTING COMFORTABLY IN BED. NO S/S OF ACUTE DISTRESS OR SOB NOTED. RESPIRATIONS EVEN AND UNLABORED. NO SIGNS OF PAIN NOTED. PER REPORT Pt IS A/OX1-2, IS VERBAL & ABLE TO MAKE NEEDS KNOWN. PATTERSON CATHETER IN PLACE & DRAINING WELL. IV ACCESS ON L WRIST #18G & RFA #22G. SAFETY MEASURES IN PLACE. BED LOW, LOCKED, HOB ELEVATED, SIDE RAILS UP, CALL LIGHT AND BEDSIDE TABLE WITHIN REACH. WILL CONTINUE TO MONITOR Pt's CONDITION AND SAFETY THROUGHOUT THE NIGHT.
[2018-12-14 20:00] VITALS: BP 95/48
[2018-12-14 21:00] VITALS: BP 95/48
[2018-12-14] MEDS: NITROFURANTOIN/NITROFURAN MAC 100 MG CAPSULE PO SCH (23:16)
[2018-12-15] VITALS (7 sets, daily range): BP systolic 94–122; BP diastolic 48–56
[2018-12-15] MEDS: VANCOMYCIN 0.75 GM in IV D5W 250 ML IV SCH ×2 (00:58→12:39)
[2018-12-15] MEDS: DILTIAZEM HCL 30 MG TABLET PO SCH ×4 (05:28→17:37)
--- NOTE | 2018-12-15 05:48 | NUR ---
RN NOTES Pt REFUSED TO BE REPOSITIONED & CHANGED. YELLED AT STAFF TO GET OUT & TO LEAVE HIM ALONE.
--- NOTE | 2018-12-15 06:29 | NUR ---
RN CLOSING NOTES NO SIGNIFICANT CHANGES IN Pt's CONDITION. Pt REMAINS STABLE PER BASELINE. NO S/S OF ACUTE DISTRESS OR SOB NOTED DURING THE NIGHT. Pt IS ASLEEP RESTING COMFORTABLY IN BED. RESPIRATIONS EVEN AND UNLABORED. ALL NEEDS MET AND ATTENDED TO. SAFETY MEASURES IN PLACE. WILL ENDORSE TO DAYSHIFT RN FOR Pt's HELENA.
[2018-12-15 06:47] LABS: CALCIUM, SERUM 8.1 mg/dL (8.5-10.1); CREATININE 0.9 mg/dL (0.6-1.3); POTASSIUM 3.2 mmol/L (3.5-5.1)
--- NOTE | 2018-12-15 07:49 | NUR ---
RN NOTE: PATIENT RECEIVED ALERT AWAKE ORIENTED X 1-2 WITH CONFUSION. ON ROOM AIR, NO BREATHING DISTRESS NOTED. IV CATH INTACT & CLEAN. PATTERSON CATH ON DRAINING WELL WITH GRAVITY. CONTINUE TO ENCOURAGE TO REPOSITION Q2H. SAFETY MEASURES OBSERVED. ENCOURAGE TO USE CALL LIGHT FOR ASSISTANCE.
[2018-12-15] MEDS: NITROFURANTOIN/NITROFURAN MAC 100 MG CAPSULE PO SCH ×2 (08:37→21:06)
[2018-12-15] MEDS: MULTIVIT W/MINERALS 1 TAB TABLET PO SCH (08:37)
[2018-12-15] MEDS: HALOPERIDOL 5 MG TABLET PO SCH ×3 (08:37→17:36)
[2018-12-15] MEDS: ASCORBIC ACID 500 MG TABLET PO SCH (08:37)
[2018-12-15] MEDS: LACTOBACILLUS RHAMNOSUS GG 1 EACH CAP.SPRINK PO SCH ×2 (08:37→17:36)
[2018-12-15] MEDS: PANTOPRAZOLE 40 MG TABLET.DR PO SCH ×2 (08:37→17:36)
[2018-12-15] MEDS: BENZTROPINE MESYLATE (1 MG) 1 MG TABLET PO SCH ×3 (08:37→17:36)
[2018-12-15] MEDS: MUPIROCIN OINT 2% 22 GM TUBE SCH ×2 (08:38→21:07)
[2018-12-15] MEDS: ENSURE ENLIVE 237 ML LIQUID (VANILLA) PO SCH ×3 (08:41→17:36)
[2018-12-15] MEDS: POTASSIUM CHLORIDE 20 MEQ TAB.PRT.SR PO SCH ×3 (10:27→12:39)
[2018-12-15] MEDS: DIGOXIN 0.25 MG TABLET PO SCH (12:40)
--- NOTE | 2018-12-15 19:00 | NUR ---
MS RN OPENING NOTES Received patient awake, A/O x 2, on hig Meier's position on bed. With patent peripheral IV lines L hand G#18 SL, and RFA G#22 with NS @ TKO rate, no s/sx of infiltration noted. Patient denied discomfort at this time. On RA, no SOB/respiratory distress noted, saturating 99%. With patent indwelling catheter with clear yellow urine noted. Kept bed low and locked, siderails x2 up call light within easy reach. Will continue to monitor accordingly.
--- NOTE | 2018-12-15 19:45 | NUR ---
MS RN NOTES Received order to ask micro about the Nitrofurantoin for urine Cx. Called [facility] [phone], spoke with Lena. Per her, microbiologist office hours is until 1530 only, thus to call back tomorrow during the office hour 0730 - 1530. Will be endorsed to the next nurse for follow up.
[2018-12-16] MEDS: DILTIAZEM HCL 30 MG TABLET PO SCH ×3 (00:36→12:17)
[2018-12-16] MEDS: VANCOMYCIN 0.75 GM in IV D5W 250 ML IV SCH ×2 (01:05→13:00)
[2018-12-16 04:00] VITALS: BP 121/59
--- NOTE | 2018-12-16 06:22 | NUR ---
MS RN CLOSING NOTES Patient awake at this time, remained on RA, no SOB/respiratory distress noted. Afebrile the whole shift. No new complaints made. All due meds given as ordered, no ASE noted. Kept clean, dry and comfortable. Call light within easy reach. Endorsed to the next shift.
--- NOTE | 2018-12-16 07:37 | NUR ---
MS RN OPENING NOTE RECEIVED PATIENT IN BED. SLEEPING, EASILY AROUSED WITH VERBAL STIMULI, ORIENTED X2, AGITATED. ON ROOM AIR, TOLERATING WELL. IN NO APPARENT DISTRESS OR DISCOMFORT AT THIS TIME. RESPIRATION EVEN AND UNLABORED, DENIES PAIN AND SOB AT THIS TIME. PATIENT IS ABLE TO COMMUNICATE NEEDS. LEFT HAND 18G IVC SL, PATENT AND INTACT, RIGHT FA 22G IVC SL, PATENT AND INTACT. PATIENT KEPT CLEAN AND COMFORTABLE. ALL NEEDS ATTENDED, SAFETY MEASURES IN PLACE, BED IN LOW LOCKED POSITION SIDE RAILS UP X2, CALL LIGHT WITHIN EASY REACH. WILL CONTINUE TO MONITOR.
[2018-12-16 08:00] VITALS: BP 112/59
[2018-12-16] MEDS: MUPIROCIN OINT 2% 22 GM TUBE SCH (08:14)
[2018-12-16] MEDS: BENZTROPINE MESYLATE (1 MG) 1 MG TABLET PO SCH ×2 (08:14→12:17)
[2018-12-16] MEDS: LACTOBACILLUS RHAMNOSUS GG 1 EACH CAP.SPRINK PO SCH (08:14)
[2018-12-16] MEDS: ENSURE ENLIVE 237 ML LIQUID (VANILLA) PO SCH ×2 (08:14→12:18)
[2018-12-16] MEDS: HALOPERIDOL 5 MG TABLET PO SCH ×2 (08:14→12:17)
[2018-12-16] MEDS: ASCORBIC ACID 500 MG TABLET PO SCH (08:15)
[2018-12-16] MEDS: PANTOPRAZOLE 40 MG TABLET.DR PO SCH (08:15)
[2018-12-16] MEDS: MULTIVIT W/MINERALS 1 TAB TABLET PO SCH (08:15)
[2018-12-16] MEDS: NITROFURANTOIN/NITROFURAN MAC 100 MG CAPSULE PO SCH (08:15)
--- NOTE | 2018-12-16 08:16 | NUR ---
PATIENT REFUSED TO TAKE ANY MEDICATIONS OR TREATMENT. SCREAMING AT STAFF, USES CURSE WORDS, VERBALLY ABUSIVE, UNCOOPERATIVE. WILL RETRY AT A LATER TIME.
[2018-12-16 10:00] VITALS: BP 112/59
[2018-12-16] MEDS ORDERED: Digoxin PO (11:50)
[2018-12-16] MEDS ORDERED: MUPI22OI7 (11:51)
[2018-12-16] MEDS ORDERED: LACT1CAP72 PO (11:51)
[2018-12-16] MEDS ORDERED: DILT30TA14 PO (11:51)
[2018-12-16] MEDS ORDERED: NITR100C15 PO (11:51)
[2018-12-16] MEDS ORDERED: VANC750P7 IV (11:51)
[2018-12-16 12:13] LABS: CALCIUM, SERUM 8.8 mg/dL (8.5-10.1); CREATININE 0.8 mg/dL (0.6-1.3); POTASSIUM 3.9 mmol/L (3.5-5.1)
[2018-12-16 12:17] VITALS: BP 110/62
[2018-12-16] MEDS: DIGOXIN 0.25 MG TABLET PO SCH (12:18)
--- NOTE | 2018-12-16 14:46 | NUR ---
PATIENT'S RIGHT FA IV INFILTRATED. WAS ABLE TO REMOVE THE IV AT THIS TIME. PATIENT IS VERY UNCOOPERATIVE, SCREAMING AND INSULTING AND REFUSES TO FOLLOW INSTRUCTIONS. DOES NOT WANT TO APPLY ICE OR ELEVATE THE EXTREMITY. SCREAMS TO LEAVE HIM ALONE.
--- NOTE | 2018-12-16 16:00 | NUR ---
MS AUTOMOBILE ACCESSORIES INSTALLER NOTE RECEIVED ORDER FOR DISCHARGE FROM DR. FOSTER. PATIENT IS BEING DC-ED BACK TO [facility]. PATIENT IS STABLE, VITAL SIGNS STABLE. ALERT ORIENTED X2. EASILY AGITATED AND UNCOOPERATIVE. PATIENT IS ON ROOM AIR, TOLERATING WELL. IN NO APPARENT DISTRESS OR DISCOMFORT AT THIS TIME. RESPIRATIONS EVEN AND UNLABORED. DENIES PAIN AND SOB. DISCHARGE PAPERWORK PREPARED VIA [employer]. PATIENT DOES NOT WANT TO BE EDUCATED OR GIVEN DISCHARGE INSTRUCTIONS. WHEN ATTEMPTED TO TALK AND EXPLAIN, PATIENT SCREAMS " GET THE HELL OUT OF HERE." DISCHARGE PAPERWORK WAS COSIGNED WITH MAX WILEY RN. PATIENT HAS NO BELONGINGS AT BEDSIDE. CHECKED AND NOTED IN THE CHART. ALL PAPERWORK COPIED AND PLACED IN THE CHART. PATIENT REFUSED SKIN ASSESSMENT/WOUND CARE, REFUSED PICTURES. REFUSED VACCINATIONS: UNSURE IF PATIENT HAD RECEIVED THEM. LEFT HAND IVC 18G SL, PATENT AND INTACT. PATIENT IS TO CONT TO RECEIVE IV ABX PER DRS ORDERS. PATTERSON CATHETER IN PLACE, DRAINING CLEAR RITA COLOR URINE. ID BAND REMOVED. REPOT CALLED AND GIVEN TO RADHA HARRIS AT [facility]. PATIENT LEFT THE UNIT VIA AMBULANCE. AT 1600.
[2018-12-16] MEDS ORDERED: VANCOMYCIN 1 GM in IV D5W 250 ML IV SCH (21:00)
== END 2018-12-16 16:20 | DRG 871 ==
LOC: ER 22:39 → TELE-TD 12-12 00:33 → TELE1 12-12 12:31 → MEDSG1 12-13 08:38
PROVIDERS: ADMIT Hospitalist; ATTEND Nurse Practitioner Acute Care
DX: A41.02 Sepsis due to Methicillin resistant Staphylococcus aureus (principal); L89.153 Pressure ulcer of sacral region, stage 3; E43 Unspecified severe protein-calorie malnutrition; G93.41 Metabolic encephalopathy; N39.0 Urinary tract infection, site not specified; Z68.1 Body mass index [BMI] 19.9 or less, adult; I10 Essential (primary) hypertension; Z88.0 Allergy status to penicillin; D53.9 Nutritional anemia, unspecified; E83.42 Hypomagnesemia; F03.90 Unspecified dementia, unspecified severity, without behavioral disturbance, psychotic disturbance, mood disturbance, and anxiety; F17.210 Nicotine dependence, cigarettes, uncomplicated; F41.9 Anxiety disorder, unspecified; L60.3 Nail dystrophy; L89.620 Pressure ulcer of left heel, unstageable; L89.610 Pressure ulcer of right heel, unstageable; R53.1 Weakness; B96.89 Other specified bacterial agents as the cause of diseases classified elsewhere; Z16.21 Resistance to vancomycin; R55 Syncope and collapse; G20 Parkinson's disease; R22.9 Localized swelling, mass and lump, unspecified; E87.6 Hypokalemia; N40.1 Benign prostatic hyperplasia with lower urinary tract symptoms; F20.9 Schizophrenia, unspecified; I48.2 Chronic atrial fibrillation
CPT/HCPCS: 36415; 71045-TC; 80048-TC; 80076-TC; 80202-TC; 81000-TC; 83605-TC; 83735-TC; 83880; 84100-TC; 84443-TC; 84484-TC; 85025-TC; 85730-TC; 87040-TC; 87081-TC; 87086-TC; 87186-TC; 92611-TC; 93307-TC; A4216; G0378; J0610; J1160; J1956; J2543; J3370; J3475; J3490; J7030; J7040; J7050; J7060

== ENCOUNTER 2019-06-23 09:09 | Inpatient (IN) | payer MEDICARE, OTHER ==
[~2019-06-23] VITALS: Ht 172.7 cm; Wt 54.9 kg
[~2019-06-23 09:09] MED LIST changes: +DILT30TA14 PO; +Digoxin PO; +LACT1CAP72 PO; +MUPI22OI7; +NITR100C15 PO; +VANC750P13 IV
[2019-06-23] MEDS ORDERED: IV NS 0.9% 1,000 ML BAG IV ONE ×2 (09:30→12:00)
[2019-06-23] MEDS ORDERED: ACETAMINOPHEN 650 MG/SUPP.RECT RC ONE ×2 (09:30→09:51)
--- NOTE | 2019-06-23 09:30 | NUR ---
patient MARYANA from [facility], came in due to fever. On 02 @ 2lpm via NC, breathing evenly and unlabored. connected to the monitor and pulse ox. IV access initiated. Blood drawned and sent to lab, ruiz cath changed. Kept comfortable, will continue to monitor accordingly.
[2019-06-23 09:45] LABS: BASOPHILS % (AUTO) 0.2 % (0.0-2.0); EOSINOPHILS % (AUTO) 0.9 % (0.0-6.0); HEMATOCRIT 31 % (39-51); HEMOGLOBIN 10.2 g/dL (13.5-17.5); LYMPHOCYTES % (AUTO) 7.8 % (20.0-44.0); MEAN CORPUSCULAR HGB CONC 33 g/dl (31.0-36.0); MEAN CORPUSCULAR VOLUME 96 fL (80-96); MONOCYTES # (AUTO) 0.8 /CMM (0.1-1.30); MONOCYTES % (AUTO) 6.3 % (2.0-12.0); NEUTROPHILS # (AUTO) 11.4 /CMM (1.8-8.9); NEUTROPHILS % (AUTO) 84.8 % (43.0-81.0); PLATELET COUNT (AUTO) 390 /CMM (150-450); RED BLOOD CELL COUNT(AUTO) 3.25 MIL/uL (4.5-6.0); WHITE BLOOD COUNT (AUTO) 13.4 K/uL (4.3-11.0)
[2019-06-23] MEDS ORDERED: ACETAMINOPHEN 120 MG/SUPP.RECT RC ONE (09:49)
[2019-06-23] MEDS ORDERED: MULT-447 GT (09:52)
[2019-06-23] MEDS ORDERED: ACET650S26 GT (09:52)
[2019-06-23] MEDS ORDERED: AMIO200T4 GT (09:52)
[2019-06-23] MEDS ORDERED: LEVA0.6320 IH (09:52)
[2019-06-23] MEDS ORDERED: ASCO500T9 PO (09:52)
[2019-06-23] MEDS ORDERED: PROT946L GT (09:52)
[2019-06-23] MEDS ORDERED: TRAM50TA2 GT (09:52)
[2019-06-23] MEDS ORDERED: DOCU-141 PO (09:52)
[2019-06-23] MEDS ORDERED: LANS30CA56 GT (09:52)
[2019-06-23] MEDS ORDERED: LACT1CAP89 GT (09:52)
[2019-06-23 09:55] LABS: APPEARANCE,URINE Clear (CLEAR); BILIRUBIN,URINE Negative (NEGATIVE); BLOOD, URINE Small Ery/uL (NEGATIVE); COLOR,URINE Yellow (YELLOW); KETONES,URINE Negative (NEGATIVE); LEUKOCYTE ESTERASE ,URINE Negative (NEGATIVE); NITRITE, URINE Negative (NEGATIVE); PH,URINE 5.5 (5.0-8.0); PROTEIN,URINE 30 mg/dl (NEGATIVE); UGLUCOSE Negative (NEGATIVE)
[2019-06-23] MEDS ORDERED: VANCOMYCIN 1 GM in IV D5W 250 ML IV ONE (10:00)
[2019-06-23] MEDS ORDERED: CEFEPIME 1 GM in IV D5W 50 ML IV ONE (10:00)
[2019-06-23 10:07] LABS: CALCIUM, SERUM 9.2 mg/dL (8.5-10.1); CREATININE 0.9 mg/dL (0.6-1.3); POTASSIUM 3.8 mmol/L (3.5-5.1)
[2019-06-23 10:12] LABS: ALBUMIN 2.4 g/dL (3.4-5.0); BILIRUBIN,DIRECT 0.3 mg/dL (0.0-0.2); BILIRUBIN,TOTAL 0.6 mg/dL (0.2-1.0); TOTAL PROTEIN, SERUM 7.7 g/dL (6.4-8.2)
[2019-06-23 10:23] LABS: BACTERIA,URINE Few /HPF (None Seen); SQUAMOUS EPITHELIAL CELL,UR Few /HPF (None Seen); WBC,URINE 0-2 /HPF (0-3)
--- NOTE | 2019-06-23 11:25 | NUR ---
GAVE MOVESHEET TO ADMITTING
--- NOTE | 2019-06-23 11:57 | NUR ---
CALLED NURSING SUP FOR BED
[2019-06-23] MEDS ORDERED: DOCUSATE SODIUM 100 MG CAPSULE PO PRN (12:00)
[2019-06-23] MEDS ORDERED: ACETAMINOPHEN 650 MG/20.3 ML UDC GT PRN (12:00)
[2019-06-23] MEDS ORDERED: DILTIAZEM HCL 25 MG IV IV ONE (12:00)
--- NOTE | 2019-06-23 12:18 | NUR ---
YURIY 106
[2019-06-23] MEDS ORDERED: MAG HYDROX/AL HYDROX/SIMETH 30 ML UDC PO PRN (12:30)
[2019-06-23] MEDS ORDERED: MAGNESIUM HYDROXIDE 30 ML UDC PO PRN (12:30)
[2019-06-23] MEDS ORDERED: ACETAMINOPHEN 325 MG TABLET PO PRN (12:30)
[2019-06-23] MEDS ORDERED: DILTIAZEM HCL 50 MG IV IV PRN (12:30)
[2019-06-23] MEDS ORDERED: Z GUARD REMEDY 2 OZ OINT TP PRN (12:30)
[2019-06-23] MEDS ORDERED: IV NS 0.9% 1,000 ML IV SCH (12:30)
[2019-06-23] MEDS ORDERED: MORPHINE SULFATE INJ 2 MG/ML DISP.SYRIN IV PRN (12:30)
[2019-06-23] MEDS ORDERED: HYDROCODONE/APAP 5/325MG 1 EACH TABLET PO PRN (12:30)
--- NOTE | 2019-06-23 12:30 | NUR ---
report given to Gary GARCIA for jaqui.
[2019-06-23] MEDS ORDERED: DILTIAZEM HCL 25 MG IV ONE (12:32)
[2019-06-23] MEDS ORDERED: FEE PK DOSING 1 MIN EA MC ONE (12:51)
[2019-06-23 13:00] VITALS: BP 114/40
--- NOTE | 2019-06-23 13:00 | NUR ---
leonie rn notes received report from floridalma rn at ER. pt received in 106, via [employer]. vss. skin assessment done/pics in chart. fluids started. on tele afib 80's. pt a/ox1. iv on LFA patent/flushed. no s/sx of infection. pt on 2L NC. no resp distress noted. pt given bed bath. bed in locked/lowest position. call light in reach. oriented to room. will cont to monitor/carry out orders.
--- NOTE | 2019-06-23 13:05 | NUR ---
wheeled patient via gurney accompanied by EMT and RN in no apparent distress noted. Gary RN at bedside to assume care.
[2019-06-23] MEDS ORDERED: ALBUTEROL FS 2.5 MG/0.5 ML VIAL.NEB NEB PRN (13:30)
[2019-06-23] MEDS: AMIODARONE HCL 200 MG TABLET GT SCH ×2 (13:44→17:40)
[2019-06-23] MEDS: PROSOURCE / PROSTAT (PYXIS) 30 ML UDC GT SCH ×2 (13:45→17:42)
[2019-06-23 16:00] VITALS: BP 103/59
[2019-06-23] MEDS: LACTOBACILLUS RHAMNOSUS GG 1 EACH CAP.SPRINK GT SCH (17:41)
[2019-06-23] MEDS: ZOSYN IVPB 3.375 G in IV D5W 50ml IV SCH ×2 (17:42→23:32)
[2019-06-23] MEDS: JEVITY 1.2 CAL 1,000 ML BOTTLE GT PRN (18:37)
--- NOTE | 2019-06-23 18:46 | NUR ---
YURIY RN NOTES pt in bed, vs stable. on tele afib 80's. feeding started. pt tolerating. no residual noted. pt is calm/cooperative. iv site infusing fluids. f/c output 250. will endorse to pm nurse for jaqui. safety measures in place. hob elevated 40 deg. call light in reach.
[2019-06-23 20:00] VITALS: BP 102/41
[2019-06-23] MEDS: VANCOMYCIN 1 GM in IV D5W 250 ML IV SCH (20:08)
[2019-06-23] MEDS: IV NS 0.9% 1,000 ML IV PRN (20:09)
[2019-06-23] MEDS: ONDANSETRON HCL/PF 4 MG/2 ML VIAL IVP PRN (22:13)
--- NOTE | 2019-06-23 22:32 | NUR ---
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 ZOFRAN ADMINISTERED. FEEDING HELD. WILL CONTINUE TO MONITOR.
[2019-06-24] VITALS: BP 100/52
[2019-06-24 00:09] VITALS: BP 100/52
[2019-06-24] MEDS: IV NS 0.9% 1,000 ML IV PRN (01:45)
[2019-06-24 04:00] VITALS: BP 94/55
[2019-06-24] MEDS: ZOSYN IVPB 3.375 G in IV D5W 50ml IV SCH ×4 (05:10→23:32)
[2019-06-24 06:31] LABS: BASOPHILS % (AUTO) 0.4 % (0.0-2.0); EOSINOPHILS % (AUTO) 2.4 % (0.0-6.0); HEMATOCRIT 28 % (39-51); HEMOGLOBIN 8.8 g/dL (13.5-17.5); LYMPHOCYTES # (AUTO) 0.7 /CMM (0.8-4.8); LYMPHOCYTES % (AUTO) 7.2 % (20.0-44.0); MEAN CORPUSCULAR HGB CONC 32 g/dl (31.0-36.0); MEAN CORPUSCULAR VOLUME 96 fL (80-96); MONOCYTES # (AUTO) 0.7 /CMM (0.1-1.30); NEUTROPHILS # (AUTO) 7.7 /CMM (1.8-8.9); PLATELET COUNT (AUTO) 294 /CMM (150-450); RED BLOOD CELL COUNT(AUTO) 2.86 MIL/uL (4.5-6.0); WHITE BLOOD COUNT (AUTO) 9.4 K/uL (4.3-11.0)
[2019-06-24 06:54] LABS: CALCIUM, SERUM 8.4 mg/dL (8.5-10.1); CREATININE 0.7 mg/dL (0.6-1.3); MAGNESIUM 2.2 mg/dL (1.8-2.4); PHOSPHORUS 2.9 mg/dL (2.5-4.9); POTASSIUM 3.4 mmol/L (3.5-5.1)
--- NOTE | 2019-06-24 07:45 | NUR ---
RN NOTE: RECEIVED PATIENT IN BED, ASLEEP, ABLE TO SPONTANEOUSLY OPEN HIS EYES, NONVERBAL. RESPIRATION EVEN AND UNLABORED SATURATING 99% WITH O2 2L/MIN VIA NC. NO FACIAL GRIMACING NOTED. HOB ELEVATED AT ALL TIMES. (L) FOREARM IV SITE NOTED PATENT AND INTACT INFUSING NS @100ML/HR. GT FEEDING OF JEVITY 1.2 @70ML/HR, WITH NO RESIDUAL NOTED. AFEBRILE. SKIN WARM TO TOUCH. PATTERSON CATHETER IN PLACED WITH YELLOW URINE DRAINING TO GRAVITY. BED ALARMED AND LOCKED AT ALL TIMES. CALL LIGHT WITHIN REACH. NEEDS ANTICIPATED.
[2019-06-24 08:00] VITALS: BP 101/52
--- NOTE | 2019-06-24 08:20 | NUR ---
RN NOTE: COLLECTED AND SENT TO LAB THE RAPID INFLUENZA FOR THE PATIENT COLLECTED VIA (L) NARE. DATED, TIMED AND INITIALED.
[2019-06-24] MEDS: IV 1/2NS 1000 ML 1,000 ML IV PRN ×2 (08:35→23:40)
[2019-06-24] MEDS: VANCOMYCIN 1 GM in IV D5W 250 ML IV SCH ×2 (08:36→20:00)
[2019-06-24] MEDS: PROSOURCE / PROSTAT (PYXIS) 30 ML UDC GT SCH ×3 (08:49→16:14)
[2019-06-24] MEDS: MULTIVIT W/MINERALS 1 TAB TABLET GT SCH (08:50)
[2019-06-24] MEDS: LACTOBACILLUS RHAMNOSUS GG 1 EACH CAP.SPRINK GT SCH ×2 (08:50→16:14)
[2019-06-24] MEDS: ASCORBIC ACID 500 MG TABLET PO SCH (08:50)
[2019-06-24] MEDS: ESOMEPRAZOLE MAGNESIUM 40 MG SUSPDR.PKT GT SCH (08:51)
[2019-06-24] MEDS: AMIODARONE HCL 200 MG TABLET GT SCH ×2 (08:51→16:14)
[2019-06-24] MEDS: TRAMADOL HCL 50 MG TABLET GT SCH (08:53)
--- NOTE | 2019-06-24 09:30 | NUR ---
RN NOTE: RAPID INFLUENZA WAS NEGATIVE. PATIENT KEPT ON STANDARD PRECAUTION.
[2019-06-24] MEDS ORDERED: POTASSIUM CHLORIDE 20 MEQ POWDER PACKET NG SCH (11:00)
[2019-06-24 16:00] VITALS: BP 102/60
[2019-06-24] MEDS: ONDANSETRON HCL/PF 4 MG/2 ML VIAL IVP PRN (16:40)
--- NOTE | 2019-06-24 19:00 | NUR ---
MS RN NOTE RECEIVED PT IN STABLE CONDITION A/O X1, CURRENTLY IN BED RESTING. NO SIGNS OF SOB OR DISTRESS. NO INDICATIONS OF PAIN. PATTERSON IN PLACE WITH ADEQUATE YELLOW URINE DRAINING. IV IN L FA #[address] WITH IVF INFUSING, TOLERATING WELL. ALL CURRENT NEEDS ATTENDED TO. BED LOW, LOCKED, UPPER RAILS UP, AND CALL LIGHT WITHIN REACH. WILL CONT. TO MONITOR.
--- NOTE | 2019-06-24 19:45 | NUR ---
RN NOTE: BEDSIDE REPORT WAS GIVEN TO PM SHIFT NURSE FOR CONTINUITY OF CARE. PATIENT HAD 1 TIME VOMITING EPISODE DURING THE SHIFT AND ZOFRAN ORDERED WAS GIVEN.
[2019-06-24 20:00] VITALS: BP 107/70
--- NOTE | 2019-06-24 20:06 | NUR ---
MS RN NOTE 2000 DOSE OF VANCO HELD FOR TROUGH RESULT OF 21.
[2019-06-24] MEDS: JEVITY 1.2 CAL 1,000 ML BOTTLE GT PRN (22:34)
[2019-06-25 04:00] VITALS: BP 90/52
--- NOTE | 2019-06-25 04:17 | NUR ---
MS RN NOTE WEEKLY WOUND PHOTOS TAKEN. WRONG DATE AND TIME WRITTEN ON LABEL. PLEASE DISREGARD. SHERRILL CHARGE NURSE NOTIFIED. NOTE WRITTEN ON EACH PHOTO. WILL CONT. TO MONITOR.
[2019-06-25] MEDS: ZOSYN IVPB 3.375 G in IV D5W 50ml IV SCH ×3 (05:35→17:27)
--- NOTE | 2019-06-25 06:32 | NUR ---
MS RN NOTE PT REMAINS IN STABLE CONDITION A/O X1, CURRENTLY IN BED RESTING. NO SIGNS OF SOB OR DISTRESS. NO INDICATIONS OF PAIN. PATTERSON IN PLACE WITH ADEQUATE YELLOW URINE DRAINING. IV IN L FA #[address] WITH IVF INFUSING, TOLERATING WELL. ALL CURRENT NEEDS ATTENDED TO. BED LOW, LOCKED, UPPER RAILS UP, PT REPOSITIONED PER PROTOCOL, AND CALL LIGHT WITHIN REACH. WEEKLY WOUND DOCUMENTATION ALSO DONE. WILL CONT. TO MONITOR AND ENDORSE TO NEXT SHIFT FOR HELENA.
[2019-06-25 07:33] LABS: BASOPHILS % (AUTO) 0.3 % (0.0-2.0); EOSINOPHILS % (AUTO) 0.3 % (0.0-6.0); HEMATOCRIT 27 % (39-51); HEMOGLOBIN 8.6 g/dL (13.5-17.5); LYMPHOCYTES # (AUTO) 0.5 /CMM (0.8-4.8); LYMPHOCYTES % (AUTO) 2.9 % (20.0-44.0); MEAN CORPUSCULAR HGB CONC 32 g/dl (31.0-36.0); MEAN CORPUSCULAR VOLUME 96 fL (80-96); MONOCYTES # (AUTO) 0.8 /CMM (0.1-1.30); MONOCYTES % (AUTO) 4.4 % (2.0-12.0); NEUTROPHILS # (AUTO) 15.9 /CMM (1.8-8.9); NEUTROPHILS % (AUTO) 92.1 % (43.0-81.0); PLATELET COUNT (AUTO) 294 /CMM (150-450); RED BLOOD CELL COUNT(AUTO) 2.79 MIL/uL (4.5-6.0); WHITE BLOOD COUNT (AUTO) 17.2 K/uL (4.3-11.0)
--- NOTE | 2019-06-25 07:49 | NUR ---
RN OPENING NOTES PT IS ASLEEP IN BED. REPORT RECEIVED FROM TRACK INSPECTOR RN. G-TUBE FEEDING RUNNING JEVITY 1.2 @ 70MLS/HR. HOB IS ELEVATED. PT HAS A L FORE ARM GAUGE 18 RUNNING 1/2 NS @75 MLS/HR. BED IS LOCKED AND IN LOWEST POSITION WITH CALL LIGHT IN REACH WILL CONTINUE TO MONITOR. Addendum: 06/25/19 at 0758 by LUKAS GOULD RN PT HAS EQUAL CHEST RISE AND FALL. NO APPARENT DISTRESS OBSERVED AT THIS TIME.
[2019-06-25 08:00] VITALS: BP 92/50
[2019-06-25 08:00] LABS: CALCIUM, SERUM 7.9 mg/dL (8.5-10.1); CREATININE 0.8 mg/dL (0.6-1.3); POTASSIUM 3.4 mmol/L (3.5-5.1)
[2019-06-25] MEDS: VANCOMYCIN 1 GM in IV D5W 250 ML IV SCH ×2 (08:00→11:54)
--- NOTE | 2019-06-25 08:00 | NUR ---
CALLED PHARMACY GAVE VANCO TROUGH LEVEL. TOLD TO HOLD VANCO FOR 0800 WILL GET NEW SCHEDULE TO ADMINISTER VANCOMYCIN.
[2019-06-25] MEDS ORDERED: POTASSIUM CHLORIDE 20 MEQ POWDER PACKET NG SCH (09:30)
--- NOTE | 2019-06-25 10:00 | NUR ---
PT HAD A BOWEL MOVEMENT, WOUND TREATMENT WAS DONE WELL. PT CLEAN.
[2019-06-25] MEDS: ASCORBIC ACID 500 MG TABLET PO SCH (10:33)
[2019-06-25] MEDS: LACTOBACILLUS RHAMNOSUS GG 1 EACH CAP.SPRINK GT SCH ×2 (10:33→17:27)
[2019-06-25] MEDS: MULTIVIT W/MINERALS 1 TAB TABLET GT SCH (10:33)
[2019-06-25] MEDS: TRAMADOL HCL 50 MG TABLET GT SCH (10:33)
[2019-06-25] MEDS: PROSOURCE / PROSTAT (PYXIS) 30 ML UDC GT SCH ×3 (10:35→17:27)
[2019-06-25] MEDS: ESOMEPRAZOLE MAGNESIUM 40 MG SUSPDR.PKT GT SCH (10:35)
[2019-06-25] MEDS: AMIODARONE HCL 200 MG TABLET GT SCH ×2 (10:48→17:27)
[2019-06-25] MEDS: HYDROGEL DRESSING 90 GM TUBE TP SCH (13:00)
[2019-06-25] MEDS: CLOTRIMAZOLE 1% 15 GM TUBE TP SCH ×2 (13:00→17:21)
[2019-06-25 16:00] VITALS: BP 90/51
[2019-06-25] MEDS: IV 1/2NS 1000 ML 1,000 ML IV PRN (16:25)
[2019-06-25] MEDS: ONDANSETRON HCL/PF 4 MG/2 ML VIAL IVP PRN (17:27)
--- NOTE | 2019-06-25 17:53 | NUR ---
PT HAD ONE EPISODE OF VOMITING. ZOFRAN GIVEN.
[2019-06-25] MEDS: JEVITY 1.2 CAL 1,000 ML BOTTLE GT PRN (18:23)
--- NOTE | 2019-06-25 18:31 | NUR ---
RN CLOSING NOTES PT IS RESTING IN BED WITH G-TUBE RUNNING JEVITY 60 MLS/HR TOLERATING WELL. PT ON SPECIALTY MATTRESS AND HAD 2 BM. PT HAS EQUAL CHEST RISE AND FALL. NO APPARENT DISTRESS NOTED AT PRESENT TIME. BED IS LOCKED AND IN LOWEST POSITION WITH HOB ELEVATED TO 40 DEGREES. WILL ENDORSE HELENA TO SUPPLY CHAIN SYSTEMS MANAGER RN.
--- NOTE | 2019-06-25 19:58 | NUR ---
INSPECTOR SOLDERING OPENING NOTES RECEIVED PATIENT IN BED WITH G-TUBE RUNNING JEVITY 60 MLS/HR TOLERATING WELL. PATIENT HAS EQUAL CHEST RISE AND FALL. NO SOB OR ACUTE DISTRESS NOTED AT THIS TIME. BED IS LOCKED AND IN LOWEST POSITION WITH HOB ELEVATE. WILL CONTINUE TO MONITOR.
[2019-06-25 20:00] VITALS: BP 95/59
[2019-06-26] VITALS: BP 93/59
[2019-06-26] MEDS: ZOSYN IVPB 3.375 G in IV D5W 50ml IV SCH ×5 (00:21→23:00)
[2019-06-26] MEDS: IV 1/2NS 1000 ML 1,000 ML IV PRN (05:41)
--- NOTE | 2019-06-26 05:50 | NUR ---
MS RN NOTE, RECEIVED CRITICAL LAB VALUE FROM LAB, GRAM POSITIVE RODE, PATIENT IS ALREADY ON ZOSYN AND MD LATHA NOTIFIED OF THE LAB VALUE. WILL CONTINUE TO MONITOR THE PATIENT.
--- NOTE | 2019-06-26 06:51 | NUR ---
WOUND CARE CONSULT WOUND CARE RECEIVED CONSULT FOR PRESSURE ULCER. WOUND CARE WILL DEFER CONSULT AND ALL TREATMENT PLANS TO PLASTIC SURGICAL TEAM WHO ARE CURRENTLY FOLLOWING THIS PATIENT. PATIENT WITH VERN AT 10, ALL PRESSURE ULCER PREVENTION MEASURES ARE NOTED TO BE IN PLACE. WILL SEE PRN.
--- NOTE | 2019-06-26 07:16 | NUR ---
BLOW TORCH BURNER CLOSING NOTES, PATIENT IN BED RESTING WITH G-TUBE RUNNING JEVITY 60 MLS/HR TOLERATING WELL. IV RUNNING 0.45 NS AT 75 ML/HR. PATIENT HAS EQUAL CHEST RISE AND FALL. NO SOB OR ACUTE DISTRESS NOTED AT THIS TIME. BED IS LOCKED AND IN LOWEST POSITION WITH HOB ELEVATE. WILL ENDORSE THE PATIENT TO AM RN FOR HELENA.
--- NOTE | 2019-06-26 07:20 | NUR ---
MS/RN OPENING NOTES RECEIVED PATIENT IN BED SLEEPING COMFORTABLY. PATIENT ABLE TO RESPOND TO TACTILE STIMULI. NO PAIN OR ACUTE DISTRESS AT THIS TIME. RESPIRATION EVEN AND UNLABORED. SKIN IS DRY WARM TO TOUCH. PATIENT NOTED WITH G-TUBE RUNNING JEVITY 60 MLS/HR TOLERATING WELL. HOB ELEVATED AT ALL TIMES. IV ACCESS ON LFA #18G INTACT AND PATENT. FLUSHING WELL. NO S/S OF INFECTION OR INFILTRATION. ALL NEEDS ANTICIPATED. CALL LIGHT WITHIN REACHED. SAFETY MAINTAINED. BED LOCKED AND IN LOWEST POSITION. WILL CONTINUE TO MONITOR CLOSELY.
[2019-06-26 07:41] LABS: BASOPHILS % (AUTO) 0.3 % (0.0-2.0); CALCIUM, SERUM 8.1 mg/dL (8.5-10.1); CREATININE 0.7 mg/dL (0.6-1.3); EOSINOPHILS % (AUTO) 2.3 % (0.0-6.0); HEMATOCRIT 25 % (39-51); HEMOGLOBIN 8.2 g/dL (13.5-17.5); LYMPHOCYTES # (AUTO) 0.7 /CMM (0.8-4.8); LYMPHOCYTES % (AUTO) 6.5 % (20.0-44.0); MEAN CORPUSCULAR HGB CONC 32 g/dl (31.0-36.0); MEAN CORPUSCULAR VOLUME 98 fL (80-96); MONOCYTES # (AUTO) 0.5 /CMM (0.1-1.30); MONOCYTES % (AUTO) 4.5 % (2.0-12.0); NEUTROPHILS # (AUTO) 9.3 /CMM (1.8-8.9); NEUTROPHILS % (AUTO) 86.4 % (43.0-81.0); PLATELET COUNT (AUTO) 244 /CMM (150-450); POTASSIUM 3.9 mmol/L (3.5-5.1); RED BLOOD CELL COUNT(AUTO) 2.58 MIL/uL (4.5-6.0); WHITE BLOOD COUNT (AUTO) 10.7 K/uL (4.3-11.0)
[2019-06-26 08:00] VITALS: BP 107/57
[2019-06-26 08:15] VITALS: BP 107/57
[2019-06-26] MEDS: MULTIVIT W/MINERALS 1 TAB TABLET GT SCH (08:54)
[2019-06-26] MEDS: ASCORBIC ACID 500 MG TABLET PO SCH (08:54)
[2019-06-26] MEDS: LACTOBACILLUS RHAMNOSUS GG 1 EACH CAP.SPRINK GT SCH ×2 (08:54→16:35)
[2019-06-26] MEDS: TRAMADOL HCL 50 MG TABLET GT SCH (08:55)
[2019-06-26] MEDS: HYDROGEL DRESSING 90 GM TUBE TP SCH (08:57)
[2019-06-26] MEDS: CLOTRIMAZOLE 1% 15 GM TUBE TP SCH ×2 (08:58→16:36)
[2019-06-26] MEDS: AMIODARONE HCL 200 MG TABLET GT SCH ×2 (08:59→16:35)
[2019-06-26] MEDS: PROSOURCE / PROSTAT (PYXIS) 30 ML UDC GT SCH ×3 (09:00→16:35)
[2019-06-26] MEDS: ESOMEPRAZOLE MAGNESIUM 40 MG SUSPDR.PKT GT SCH (09:00)
[2019-06-26] MEDS: VANCOMYCIN 1 GM in IV D5W 250 ML IV SCH (10:22)
--- NOTE | 2019-06-26 10:25 | NUR ---
MS/RN NOTES CALLED PHARMACY TO VERIFY THE ADMINISTRATION OF VANCO. SPOKE TO CORTES FROM PHARMACY AND PER HIM IT IS OK TO GIVE RIGHT NOW. ACCORDING TO HIM HE WILL ALSO ORDER ANOTHER VANCO TROUGH FOR TOMORROW. PATIENT CONTINUES TO REMAIN IN STABLE CONDITION. WILL CONTINUE TO MONITOR CLOSELY.
[2019-06-26 10:51] LABS: EOSINOPHILS % (MANUAL) 1 % (0-4); LYMPHOCYTES % (MANUAL) 4 % (16-48); MONOCYTES % (MANUAL) 3 % (0-11.0); NEUTROPHILS % (MANUAL) 92 (42-76)
[2019-06-26] MEDS: JEVITY 1.2 CAL 1,000 ML BOTTLE GT PRN (12:29)
[2019-06-26 16:00] VITALS: BP 110/62
--- NOTE | 2019-06-26 18:59 | NUR ---
MS/RN CLOSING NOTES PATIENT CONTINUES TO REMAIN IN STABLE CONDITION THROUGHOUT THE SHIFT. PROVIDED COMFORT AND SAFETY. PATIENT ABLE TO TOLERATE FEEDING AND MEDS WELL. PATIENT NOTED WITH G-TUBE RUNNING JEVITY 60 MLS/HR TOLERATING WELL. HOB ELEVATED AT ALL TIMES. IV ACCESS ON LFA #18G INTACT AND PATENT. FLUSHING WELL. NO S/S OF INFECTION OR INFILTRATION. ALL NEEDS ANTICIPATED. CALL LIGHT WITHIN REACHED. SAFETY MAINTAINED. BED LOCKED AND IN LOWEST POSITION. WILL CONTINUE TO MONITOR CLOSELY. ENDORSED TO PM NURSE FOR HELENA.
--- NOTE | 2019-06-26 19:34 | NUR ---
MS RN NOTES RECEIVED PT ON BED. A/O X 1. ON NASAL CANNULA 2LPM NO RESPIRATORY DISTRESS NOTED. PATTERSON CATH DRAINING YELLOW URINE. IV ACCESS ON LFA G18 WITH NS @75CC/HR, IV LINE PATENT AND INTACT. GTUBE FEEDING @ 60CC/HR NO RESIDUAL NOTED. HEAD OF BED ELEVATED. SIDE RAILS UP. BED IN LOW AND LOCKED POSITION. BED ALARM ON. WILL CONTINUE TO MONITOR PT CLOSELY.
[2019-06-26 20:00] VITALS: BP 102/57
[2019-06-27] MEDS: IV 1/2NS 1000 ML 1,000 ML IV PRN ×2 (02:36→22:21)
[2019-06-27 04:00] VITALS: BP 104/70
[2019-06-27] MEDS: ZOSYN IVPB 3.375 G in IV D5W 50ml IV SCH ×4 (05:03→23:57)
--- NOTE | 2019-06-27 07:29 | NUR ---
MS RN NOTES NO ACUTE CHANGES NOTED DURING THE SHIFT. NO ACTIVE BLEEDING NOTED. NO RESPIRATORY DISTRESS NOTED. WILL ENDORSE TO THE AM NURSE FOR CONTINUITY OF CARE.
[2019-06-27 08:00] VITALS: BP 97/56
[2019-06-27 08:11] LABS: CREATININE 0.6 mg/dL (0.6-1.3); POTASSIUM 4.5 mmol/L (3.5-5.1)
[2019-06-27] MEDS: TRAMADOL HCL 50 MG TABLET GT SCH (08:46)
[2019-06-27 09:32] LABS: BASOPHILS # (AUTO) 0.1 /CMM (0.0-0.2); BASOPHILS % (AUTO) 0.6 % (0.0-2.0); EOSINOPHILS % (AUTO) 3.3 % (0.0-6.0); HEMATOCRIT 25 % (39-51); HEMOGLOBIN 7.9 g/dL (13.5-17.5); LYMPHOCYTES # (AUTO) 0.7 /CMM (0.8-4.8); LYMPHOCYTES % (AUTO) 5.5 % (20.0-44.0); MEAN CORPUSCULAR HGB CONC 32 g/dl (31.0-36.0); MEAN CORPUSCULAR VOLUME 97 fL (80-96); MONOCYTES # (AUTO) 0.6 /CMM (0.1-1.30); MONOCYTES % (AUTO) 4.8 % (2.0-12.0); NEUTROPHILS # (AUTO) 10.6 /CMM (1.8-8.9); NEUTROPHILS % (AUTO) 85.8 % (43.0-81.0); PLATELET COUNT (AUTO) 292 /CMM (150-450); RED BLOOD CELL COUNT(AUTO) 2.57 MIL/uL (4.5-6.0); WHITE BLOOD COUNT (AUTO) 12.3 K/uL (4.3-11.0)
[2019-06-27 10:31] LABS: BAND % (MANUAL) 1 % (0.0-5.0); EOSINOPHILS % (MANUAL) 5 % (0-4); LYMPHOCYTES % (MANUAL) 4 % (16-48); MONOCYTES % (MANUAL) 4 % (0-11.0); MYELOCYTES % 3 % (0-0); NEUTROPHILS % (MANUAL) 83 (42-76)
[2019-06-27] MEDS: LACTOBACILLUS RHAMNOSUS GG 1 EACH CAP.SPRINK GT SCH ×2 (12:10→18:01)
[2019-06-27] MEDS: ASCORBIC ACID 500 MG TABLET PO SCH (12:11)
[2019-06-27] MEDS: AMIODARONE HCL 200 MG TABLET GT SCH ×2 (12:11→18:03)
[2019-06-27] MEDS: MULTIVIT W/MINERALS 1 TAB TABLET GT SCH (12:11)
[2019-06-27] MEDS: JEVITY 1.2 CAL 1,000 ML BOTTLE GT PRN (12:20)
[2019-06-27] MEDS: PROSOURCE / PROSTAT (PYXIS) 30 ML UDC GT SCH ×3 (12:21→17:00)
[2019-06-27] MEDS ORDERED: JEVITY 1.2 CAL 1,000 ML BOTTLE GT PRN ×2 (12:30→15:30)
[2019-06-27] MEDS: CLOTRIMAZOLE 1% 15 GM TUBE TP SCH ×2 (12:30→19:21)
[2019-06-27] MEDS: ESOMEPRAZOLE MAGNESIUM 40 MG SUSPDR.PKT GT SCH (12:32)
[2019-06-27] MEDS: HYDROGEL DRESSING 90 GM TUBE TP SCH ×4 (12:32→19:25)
[2019-06-27] MEDS: VANCOMYCIN 1 GM in IV D5W 250 ML IV SCH (12:37)
[2019-06-27 13:41] VITALS: BP 139/90
--- NOTE | 2019-06-27 14:00 | NUR ---
S/P BIOPSY MASS BY DR. UNDERWOOD,SPECIMEN BROUGHT TO LAB FOR BIOPSY.
[2019-06-27 16:00] VITALS: BP 112/64
--- NOTE | 2019-06-27 19:30 | NUR ---
RN OPENING NOTE. BESIDE REPORT RECIEVED FROM TUNISIAN RN. PATIENT IN BED ALERT. RESPOSIVE TO VOICE. IN NO APPARENT DISTRESS. JEVITY 1.2RUNNING AT 60 ML PER HOUR . 1/2 NS RUNNING TO LEFT FA 18 GAUGE WITH NO S/S OF COMPLICATIONS. BED DOWN LOCKED SRX3 CALLLIGHT IN REACH BED ALARM ACTIVE. WILL CONT TO MONITOR.
--- NOTE | 2019-06-27 19:36 | NUR ---
Prostat not available. Called Kitchen 2x during shift. Awaiting delivery. Missed dose will continue once it's available.
--- NOTE | 2019-06-27 19:38 | NUR ---
Report given to Guzman Bearden. Patient is on NC @ 2 L. No signs of respiratory distress. NGTube feeding with Jevity running @ 60 ml per hour. .45% NS infusing well to the Right upper arm PIVL, site no phlebitis/infiltration noted. Egan cath intact and patent. wound dressings (sacral decub, back) intact and dry.
[2019-06-27 20:00] VITALS: BP 99/74
[2019-06-28 04:00] VITALS: BP 113/67
[2019-06-28] MEDS ORDERED: VANCOMYCIN 1 GM in IV D5W 250 ML IV SCH (05:00)
[2019-06-28 05:32] LABS: CREATININE 0.6 mg/dL (0.6-1.3)
--- NOTE | 2019-06-28 06:30 | NUR ---
RN CLOSING NOTE. PATIENT IN BED ALERT. RESPOSIVE TO VOICE. IN NO APPARENT DISTRESS. JEVITY 1.2RUNNING AT 60 ML PER HOUR . 1/2 NS RUNNING TO LEFT FA 18 GAUGE WITH NO S/S OF COMPLICATIONS. ED DOWN LOCKED SRX3 CALLLIGHT IN REACH BED ALARM ACTIVE. PATIENT HD 1 BM LAS NIGHT SOFT. PATIENT DRAINGING RITA URINE FROM FC. WILL ENDORSE TO AM SHIFT.
[2019-06-28] MEDS: ZOSYN IVPB 3.375 G in IV D5W 50ml IV SCH ×2 (06:44→12:18)
--- NOTE | 2019-06-28 07:22 | NUR ---
MS RN OPENING NOTE RECEIVED REPORT FROM [facility] SH[facility]. PT ASLEEP IN BED, ON 02 VIA NC 2L/MIN, SATURATING WELL, NO SIGNS OF RESPIRATORY DISTRESS NOTED. PATTERSON CATHETER DRAINING CLEAR, RITA, URINE. JEVITY INFUSING AT 60ML/HR, PT TOLERATING FEEDING WELL. CHECKED FOR RESIDUAL AND PLACEMENT. IV SITE ON RIGHT FOREARM G22 INTACT PATENT, WITH SALINE LOCK. IV SITE ON LEFT FOREARM G18 INFUSING NS AT 75ML/HR, NO SIGNS OF INFILTRATION NOTED. BED IN LOW POSITION, LOCKED, CALL LIGHT WITHIN REACH.
[2019-06-28] MEDS ORDERED: PANTOPRAZOLE 40 MG TABLET.DR PO SCH (07:30)
[2019-06-28 08:00] VITALS: BP 130/72
[2019-06-28 08:31] VITALS: BP 130/72
[2019-06-28] MEDS: AMIODARONE HCL 200 MG TABLET GT SCH (08:31)
[2019-06-28] MEDS: LACTOBACILLUS RHAMNOSUS GG 1 EACH CAP.SPRINK GT SCH (08:31)
[2019-06-28] MEDS: MULTIVIT W/MINERALS 1 TAB TABLET GT SCH (08:31)
[2019-06-28] MEDS: ASCORBIC ACID 500 MG TABLET PO SCH (08:31)
[2019-06-28] MEDS: PROSOURCE / PROSTAT (PYXIS) 30 ML UDC GT SCH ×2 (08:32→13:20)
[2019-06-28] MEDS: TRAMADOL HCL 50 MG TABLET GT SCH (08:32)
[2019-06-28] MEDS: HYDROGEL DRESSING 90 GM TUBE TP SCH (08:32)
[2019-06-28] MEDS: CLOTRIMAZOLE 1% 15 GM TUBE TP SCH (08:32)
[2019-06-28 11:59] LABS: BASOPHILS % (AUTO) 0.4 % (0.0-2.0); EOSINOPHILS % (AUTO) 3.7 % (0.0-6.0); HEMATOCRIT 25 % (39-51); LYMPHOCYTES # (AUTO) 1.1 /CMM (0.8-4.8); LYMPHOCYTES % (AUTO) 9.1 % (20.0-44.0); MEAN CORPUSCULAR HGB CONC 32 g/dl (31.0-36.0); MEAN CORPUSCULAR VOLUME 96 fL (80-96); MONOCYTES # (AUTO) 0.9 /CMM (0.1-1.30); MONOCYTES % (AUTO) 7.5 % (2.0-12.0); NEUTROPHILS # (AUTO) 9.2 /CMM (1.8-8.9); NEUTROPHILS % (AUTO) 79.3 % (43.0-81.0); PLATELET COUNT (AUTO) 291 /CMM (150-450); RED BLOOD CELL COUNT(AUTO) 2.61 MIL/uL (4.5-6.0); WHITE BLOOD COUNT (AUTO) 11.6 K/uL (4.3-11.0)
--- NOTE | 2019-06-28 12:00 | NUR ---
CALLED [facility] AND GAVE TELEPHONE REPORT TO TU GARCIA
--- NOTE | 2019-06-28 13:20 | NUR ---
DISCHARGE PHOTOS TAKEN- PLACED INTO CHART.
--- NOTE | 2019-06-28 13:43 | NUR ---
PT LEFT IN STABLE CONDITION VIA GURNEY WITH AMBULANCE TRANSPORTAION. GAVE REPORT TO KRYSTINA
== END 2019-06-28 13:46 | DRG 853 ==
LOC: ER 09:15 → TELE-TD 12:23 → MEDSG1 06-24 09:17
PROVIDERS: ADMIT Internal Medicine; ATTEND Internal Medicine
PROC: 0KBP0ZZ Excision of Left Hip Muscle, Open Approach (ICD-10-PCS; principal; 2019-06-27)
PROC: 0KBN0ZZ Excision of Right Hip Muscle, Open Approach (ICD-10-PCS; 2019-06-27)
PROC: 0JB50ZX Excision of Left Neck Subcutaneous Tissue and Fascia, Open Approach, Diagnostic (ICD-10-PCS; 2019-06-28)
PROC: 09BKXZX Excision of Nasal Mucosa and Soft Tissue, External Approach, Diagnostic (ICD-10-PCS; 2019-06-28)
DX: A41.50 Gram-negative sepsis, unspecified (principal); L89.123 Pressure ulcer of left upper back, stage 3; L89.154 Pressure ulcer of sacral region, stage 4; J18.9 Pneumonia, unspecified organism; G93.41 Metabolic encephalopathy; E43 Unspecified severe protein-calorie malnutrition; N17.0 Acute kidney failure with tubular necrosis; D68.59 Other primary thrombophilia; Z68.1 Body mass index [BMI] 19.9 or less, adult; R64 Cachexia; D63.8 Anemia in other chronic diseases classified elsewhere; F17.210 Nicotine dependence, cigarettes, uncomplicated; L30.4 Erythema intertrigo; I48.91 Unspecified atrial fibrillation; R13.10 Dysphagia, unspecified; Z93.1 Gastrostomy status; R22.1 Localized swelling, mass and lump, neck; I10 Essential (primary) hypertension; F20.9 Schizophrenia, unspecified; N40.0 Benign prostatic hyperplasia without lower urinary tract symptoms; G20 Parkinson's disease; F02.80 Dementia in other diseases classified elsewhere, unspecified severity, without behavioral disturbance, psychotic disturbance, mood disturbance, and anxiety; Z86.73 Personal history of transient ischemic attack (TIA), and cerebral infarction without residual deficits; F09 Unspecified mental disorder due to known physiological condition; Z88.0 Allergy status to penicillin; E86.0 Dehydration; R91.1 Solitary pulmonary nodule; L89.120 Pressure ulcer of left upper back, unstageable; L89.110 Pressure ulcer of right upper back, unstageable; S61.412A Laceration without foreign body of left hand, initial encounter; X58.XXXA Exposure to other specified factors, initial encounter; Y92.89 Other specified places as the place of occurrence of the external cause; L89.620 Pressure ulcer of left heel, unstageable; L89.892 Pressure ulcer of other site, stage 2; M24.572 Contracture, left ankle; M24.571 Contracture, right ankle
CPT/HCPCS: 36415; 71045-TC; 80048-TC; 80076-TC; 80202-TC; 81000-TC; 83605-TC; 83735-TC; 84100-TC; 84484-TC; 85025-TC; 85730-TC; 87040-TC; 87081-TC; 87086-TC; 88305-TC; 94799-TC; A6248; A6253; A6403; G0378; J0692; J2405; J2543; J3370; J3490; J7030; J7060